=== PATIENT | female | born 1940 | race Caucasian/White ===

== ENCOUNTER 2016-08-07 19:17 | Observation (INO) | payer MEDICARE, BC ==
[2016-08-07] MEDS ORDERED: ONDANSETRON 4 MG/2 ML VIAL IVP STA (19:48)
[2016-08-07] MEDS ORDERED: MORPHINE SULFATE 2 MG/ML SYRINGE IVP STA (19:48)
--- NOTE | 2016-08-07 19:53 | ED ---
Chest Pain HPI - General Chief Complaint: Chest Pain Stated Complaint: Chest Pain Time Seen by Provider: 08/07/16 19:34 Source: patient Mode of arrival: wheelchair Limitations: no limitations - History of Present Illness Initial Comments: She has the chest pain ongoing for 2 days he seen in the anterior central chest and today it got worse after 2 PM it travels down to her back and is worse with a deep breaths as well she said she feels like it's pneumonia acting up she said she been coughing up yellow green stuff and now it's quite a large amount of phlegm she brings up the she denies any fever she has chills. Review of system is negative otherwise - Related Data Home Medications Medication Instructions Recorded Confirmed Cholecalciferol [Vitamin D3] 1,000 unit PO DAILY 02/27/14 08/07/16 Indomethacin 25 mg PO Q8HR PRN 02/27/14 08/07/16 Levothyroxine Sodium [Synthroid] 25 mcg PO DAILY 02/27/14 08/07/16 Losartan [Cozaar] 50 mg PO DAILY 02/27/14 08/07/16 Pravastatin Sodium [Pravachol] 20 mg PO HS 02/27/14 08/07/16 amLODIPine [Norvasc] 5 mg PO DAILY 02/27/14 08/07/16 traMADol HCl [Ultram] 50 mg PO Q8HR PRN 02/27/14 08/07/16 Ferrous Sulfate [Iron (65 MG 325 mg PO DAILY 12/16/14 08/07/16 Elemental)] [place]-3 Fatty Acids/Fish Oil [Fish 1 cap PO DAILY 12/16/14 08/07/16 Oil 1,000 mg Softgel] Acetaminophen [Tylenol 8 Hour] 650 mg PO TID PRN 08/07/16 08/07/16 Allergies Allergy/AdvReac Type Severity Reaction Status Date / Time No Known Allergies Allergy Verified 08/07/16 19:55 Review of Systems ROS Statement: Those systems with pertinent positive or pertinent negative responses have been documented in the HPI. ROS Other: All systems not noted in ROS Statement are negative. EKG Findings - EKG Comments: EKG Findings:: EKG showed normal sinus rhythm with some sinus arrhythmia ventricular rate 72 NH interval is 204 QRS duration is 1 or 2 QT/QTc is 378/ 413. Review of this EKG does not show any ST elevation or ST depression Past Medical History Past Medical History: Chest Pain / Angina, Heart Failure, Hyperlipidemia, Hypertension, Thyroid Disorder Additional Past Medical History / Comment(s): anemic, arthritis History of Any Multi-Drug Resistant Organisms: None Reported Past Surgical History: No Surgical Hx Reported Additional Past Surgical History / Comment(s): cataracts Past Anesthesia/Blood Transfusion Reactions: No Reported Reaction Past Psychological History: No Psychological Hx Reported Smoking Status: Never smoker Past Alcohol Use History: None Reported Past Drug Use History: None Reported General Exam - General Exam Comments Initial Comments: General: The patient is awake and alert, in moderate distress but GCS is 15 Skin: Skin is warm and dry and no rashes or lesions are noted. Eye: Pupils are equal, round and reactive to light, extra-ocular movements are intact; there is normal conjunctiva bilaterally. Ears, nose, mouth and throat: There are moist mucous membranes and no oral lesions. Neck: The neck is supple, there is no tenderness or JVD. Cardiovascular: There is a regular rate and rhythm. No murmur, rub or gallop is appreciated. Respiratory: To auscultation bilateral, crease breath sounds at the bases Gastrointestinal: tender in epigastric area. Back: There is no tenderness to palpation in the midline. There is no obvious deformity. Musculoskeletal: Normal ROM, no tenderness, There is no pedal edema. There is no calf tenderness or swelling. No cords were appreciated. Neurological: CN II-XII intact, Cranial nerves III through XII are intact. There are no obvious motor or sensory deficits. Coordination appears grossly intact. Speech is normal. Psychiatric: Cooperative, appropriate mood & affect, normal judgment. Limitations: no limitations Course Vital Signs 08/07/16 19:20 Temperature 98.4 F Pulse Rate 94 Respiratory 20 Rate Blood Pressure 147/75 O2 Sat by Pulse 97 Oximetry Critical Care Time Total Critical Care Time: 45 Critical Care Time: She With the severe chest pain and numb and a significant pleuritic component to it no fever she required quite a bit of morphine then numb and aVF lab revealed troponin is negative EKG is unremarkable but the d-dimer was high as CT angiogram was done it's unremarkable. She still in pain considering the risk factors she be admitted to the cardiology consult she be heparinized in the ER and she will also see cardiology as well as GI doctor Disposition Clinical Impression: Chest pain, Pleuritic chest pain Disposition: ADMITTED IP TO THIS HOSP Condition: Good
[2016-08-07 20:00] LABS: Basophils # (A) 0.1 k/uL (0-0.2); Basophils % (A) 2 %; CH 37.8; CHCM 33.2; Eosinophils # (A) 0.3 k/uL (0-0.7); Eosinophils % (A) 5 %; HDW 2.43; HGB 13.4 gm/dL (11.4-16.0); Luc % (Auto) 2; Lymphocytes # (A) 1.2 k/uL (1.0-4.8); Lymphocytes % (A) 20 %; MCH 36.3 pg (25.0-35.0); MCHC 31.8 g/dL (31.0-37.0); MCV 114.3 fL (80.0-100.0); Macrocytosis Marked; Mean Platelet Volume 7.7; Monocytes # (A) 0.3 k/uL (0-1.0); Monocytes % (A) 6 %; Neutrophils # (A) 3.8 k/uL (1.3-7.7); Neutrophils % (A) 65 %; RBC 3.68 m/uL (3.80-5.40); RDW 15.4 % (11.5-15.5); WBC 5.9 k/uL (3.8-10.6)
[2016-08-07 20:12] LABS: ALT 31 U/L (9-52); AST 23 U/L (14-36); Alkaline Phosphatase 68 U/L (38-126); Anion Gap 10 mmol/L; Blood Urea Nitrogen 17 mg/dL (7-17); Calcium 9.5 mg/dL (8.4-10.2); Carbon Dioxide 26 mmol/L (22-30); Chloride 102 mmol/L (98-107); Glucose 123 mg/dL (74-99); Magnesium 1.6 mg/dL (1.6-2.3); Non-African American GFR(MDRD) >60 (>60 ml/min/1.73 sqM); Potassium 4.7 mmol/L (3.5-5.1); Sodium 138 mmol/L (137-145); Total Bilirubin 0.6 mg/dL (0.2-1.3); Total Protein 6.8 g/dL (6.3-8.2)
[2016-08-07 20:23] LABS: INR 1.1 (<1.1); Prothrombin Time 10.8 sec (9.0-12.0)
[2016-08-07 20:27] LABS: Partial Thromboplastin Time 21.8 sec (22.0-30.0)
[2016-08-07 20:32] LABS: Creatine Kinase MB 0.4 ng/mL (0.0-2.4); Troponin I 0.013 ng/mL (0.000-0.034)
--- NOTE | 2016-08-07 20:34 | XR ---
EXAMINATION TYPE: XR chest 2V DATE OF EXAM: 08/07/2016 8:03 PM COMPARISON: 11/01/2015 HISTORY: Chest pain TECHNIQUE: Frontal and lateral views of the chest are obtained. FINDINGS: There is a hiatal hernia. Lungs are clear. There is no heart failure. There are no hilar m asses. There is spurring in the thoracic spine. IMPRESSION: Moderate hiatal hernia. Cardiomegaly. No acute lung disease. No change. There are ankylo tic changes in the midthoracic spine.
[2016-08-07] MEDS ORDERED: RX INFO: IV CONTRAST WAS GIVEN 1 EACH MISC MISCELLANE PRN (20:41)
--- NOTE | 2016-08-07 22:09 | CT ---
EXAMINATION TYPE: CT angio chest DATE OF EXAM: 08/07/2016 9:42 PM COMPARISON: NONE HISTORY: Mid Chest pain CT DLP: 471.6 mGycm Automated exposure control for dose reduction was used. CONTRAST: CTA scan of the thorax is performed with IV Contrast, patient injected with 100 mL of Omnipaque 350, pulmonary embolism protocol. There are 3-D post processed images.. FINDINGS: There is mild reticular subpleural density in both lungs and more at the lung bases. There is subsegm ental atelectasis at the lung bases. There is no sign of a pulmonary mass. There is a large hiatal he rnia. There is normal contrast opacification of the pulmonary arteries. I see no filling defects. The re is no sign of aortic aneurysm or dissection. Heart size is normal. There is degenerative spurring in the thoracic spine. There are ankylosing changes in the thoracic spine. IMPRESSION: NO EVIDENCE OF PULMONARY EMBOLISM. MILD PULMONARY FIBROTIC CHANGES. LARGE HIATAL HERNIA. THERE ARE CH ANGES OF POSSIBLE ANKYLOSING SPONDYLITIS.
[2016-08-07] MEDS ORDERED: MORPHINE SULFATE 2 MG/ML SYRINGE IVP ONE (22:43)
[2016-08-07] MEDS ORDERED: NITROGLYCERIN SL TABS 0.4 MG TAB SUBLINGUAL PRN (23:20)
[2016-08-07] MEDS ORDERED: HEPARIN SODIUM,PORCINE 5,000 UNIT/ML 1 ML VIAL IV ONE (23:20)
[2016-08-07] MEDS ORDERED: ACETAMINOPHEN TAB 325 MG TAB PO PRN (23:26)
[2016-08-07] MEDS ORDERED: INDOMETHACIN 25 MG CAP PO PRN (23:26)
[2016-08-07] MEDS ORDERED: PANTOPRAZOLE 40 MG/10 ML VIAL IVP ONE (23:28)
[2016-08-07] MEDS ORDERED: HEPARIN SODIUM,PORCINE/D5W PMX 25,000 UNIT in DEXTROSE/WATER 1 500ML.BAG IV SCH (23:30)
[2016-08-07] MEDS: MORPHINE SULFATE 2 MG/ML SYRINGE IVP PRN (23:56)
[2016-08-07] MEDS ORDERED: traMADol 50 MG TAB PO STA (23:58)
[2016-08-07] MEDS ORDERED: ACETAMINOPHEN TAB 325 MG TAB PO STA (23:59)
[2016-08-08 00:57] VITALS: BMI 31.4
[2016-08-08 02:59] LABS: Creatine Kinase <20 U/L (30-135)
[2016-08-08 03:12] LABS: Creatine Kinase MB 0.3 ng/mL (0.0-2.4); Troponin I <0.012 ng/mL (0.000-0.034)
[2016-08-08] MEDS: MORPHINE SULFATE 2 MG/ML SYRINGE IVP PRN (04:23)
[2016-08-08] MEDS: LEVOTHYROXINE 25 MCG TAB PO SCH (05:33)
[2016-08-08 07:16] LABS: Cholesterol 178 mg/dL (<200); HDL Cholesterol 106 mg/dL (40-60); Triglycerides 64 mg/dL (<150)
[2016-08-08 07:42] LABS: Creatine Kinase <20 U/L (30-135)
[2016-08-08 07:54] LABS: Creatine Kinase MB 0.2 ng/mL (0.0-2.4); Troponin I <0.012 ng/mL (0.000-0.034)
--- NOTE | 2016-08-08 08:31 | P.CRDCN ---
History of Present Illness Consult date: 08/08/16 Chief complaint: Chest pain History of present illness: This is a pleasant 75-year-old female patient with a past medical history significant for hypertension and dyslipidemia who does not follows with any tight cooper presented to the emergency room complaining of chest discomfort. Over the last 3-4 days, she describes chest discomfort, in the mid of the chest , as a sharp kind of discomfort, worse with deep breath. With that, the patient underwent a CTA of the chest which showed no PE. The EKG showed sinus rhythm without any significant ST or T-wave abnormalities. 3 sets of cardiac enzymes came in to be unremarkable. The CTA of the chest showed no PE but it did show large hiatal hernia. The patient is not aware of any prior history of coronary artery disease or coronary artery revascularization. I am going to proceed with a stress test. I will continue following up with her. Past Medical History Past Medical History: Chest Pain / Angina, Heart Failure, GERD/Reflux, Hearing Disorder / Deafness, Hyperlipidemia, Hypertension, Osteoarthritis (OA), Rheumatoid Arthritis (RA), Thyroid Disorder Additional Past Medical History / Comment(s): anemic, arthritis, DDD History of Any Multi-Drug Resistant Organisms: None Reported Past Surgical History: No Surgical Hx Reported Additional Past Surgical History / Comment(s): cataracts, vericous veins stripping bilat. arthroscopic surgery bilat knees and ankles Past Anesthesia/Blood Transfusion Reactions: No Reported Reaction Past Psychological History: No Psychological Hx Reported Smoking Status: Never smoker Past Alcohol Use History: None Reported Past Drug Use History: None Reported - Past Family History Mother Family Medical History: Coronary Artery Disease (CAD) Father Family Medical History: Cancer Additional Family Medical History / Comment(s): Lung CA Medications and Allergies Home Medications Medication Instructions Recorded Confirmed Type Cholecalciferol [Vitamin D3] 1,000 unit PO DAILY 02/27/14 08/08/16 History Indomethacin 25 mg PO Q8HR PRN 02/27/14 08/08/16 History Levothyroxine Sodium [Synthroid] 25 mcg PO DAILY 02/27/14 08/08/16 History Losartan [Cozaar] 50 mg PO DAILY 02/27/14 08/08/16 History Pravastatin Sodium [Pravachol] 20 mg PO HS 02/27/14 08/08/16 History amLODIPine [Norvasc] 5 mg PO DAILY 02/27/14 08/08/16 History traMADol HCl [Ultram] 50 mg PO Q8HR PRN 02/27/14 08/08/16 History Ferrous Sulfate [Iron (65 MG 325 mg PO DAILY 12/16/14 08/08/16 History Elemental)] [place]-3 Fatty Acids/Fish Oil [Fish 1 cap PO DAILY 12/16/14 08/08/16 History Oil 1,000 mg Softgel] Acetaminophen [Tylenol 8 Hour] 650 mg PO TID PRN 08/07/16 08/08/16 History Oxybutynin Chloride [Ditropan] 5 mg PO BID 08/08/16 08/08/16 History Allergies Allergy/AdvReac Type Severity Reaction Status Date / Time No Known Allergies Allergy Verified 08/08/16 01:02 Physical Exam Vitals: Vital Signs Temp Pulse Pulse Resp BP Pulse Ox 08/08/16 07:53 98.9 F 73 18 140/73 98 08/08/16 04:00 98.2 F 95 16 163/78 95 08/08/16 01:49 98 08/08/16 00:00 98.6 F 74 18 154/73 98 08/07/16 23:40 98.6 F 86 20 154/73 98 Intake and Output 08/07/16 08/08/16 08/08/16 22:59 06:59 14:59 Intake Total 260 Balance 260 Intake: IV 210 0.9 NS @ 10ml/hr 70 Heparin Sodium,Porcine/ 140 D5w Pmx 25,000 unit In Dextrose/Water 1 500ml. bag @ 12 UNITS/KG/HR 19. 59 mls/hr IV .Q24H [facility] Rx #:[id number] Oral 50 Other: Voiding Method Toilet # Voids 2 Weight 91.5 kg - Constitutional General appearance: no acute distress - Respiratory Respiratory: bilateral: CTA - Cardiovascular Rhythm: regular Heart sounds: normal: S1, S2 Results 08/07/16 19:40 08/07/16 19:40 Cardiac Enzymes 08/08/16 08/08/16 Range/Units 02:29 06:42 CK-MB (CK-2) 0.3 0.2 (0.0-2.4) ng/mL Troponin I <0.012 <0.012 (0.000-0.034) ng/mL Coagulation 08/08/16 Range/Units 06:40 APTT 31.0 H (22.0-30.0) sec Lipids 08/08/16 Range/Units 06:42 Triglycerides 64 (<150) mg/dL Cholesterol 178 (<200) mg/dL HDL Cholesterol 106 H (40-60) mg/dL Current Medications Generic Name Dose Route Start Last Admin Trade Name Freq PRN Reason Stop Dose Admin Acetaminophen 650 mg 08/07/16 23:26 Tylenol Tab PO TID PRN Pain Amlodipine Besylate 5 mg 08/08/16 09:00 Norvasc PO DAILY [facility] Aspirin 325 mg 08/08/16 09:00 Aspirin PO DAILY [facility] Cholecalciferol 1,000 unit 08/08/16 09:00 Vitamin D3 PO DAILY [facility] Ferrous Sulfate 325 mg 08/08/16 09:00 Feosol PO DAILY [facility] Heparin Sodium/Dextrose 25,000 500 mls @ 19.59 mls/hr 08/07/16 23:30 00:02 unit/ IV Solution IV 12 units/kg/hr .Q24H [facility] 19.59 mls/hr Protocol Administration 12 UNITS/KG/HR Indomethacin 25 mg 08/07/16 23:26 Indocin PO Q8HR PRN Pain Levothyroxine Sodium 25 mcg 08/08/16 06:30 08/08/16 05:33 Synthroid PO 25 mcg 0630 [facility] Administration Losartan Potassium 50 mg 08/08/16 09:00 Cozaar PO DAILY [facility] Miscellaneous Information 1 each 08/07/16 20:41 08/07/16 23:58 Rx Info: Iv Contrast Was Given MISCELLANE 08/09/16 20:41 1 each DAILY PRN Administration Per Protocol Morphine Sulfate 2 mg 08/07/16 23:20 08/08/16 04:23 Morphine Sulfate (Inj) IVP 2 mg Q5M PRN Administration Chest Pain Nitroglycerin 0.4 mg 08/07/16 23:20 Nitrostat SUBLINGUAL Q5M PRN Chest Pain Pravastatin Sodium 20 mg 08/08/16 21:00 Pravachol PO HS [facility] Tramadol HCl 50 mg 08/07/16 23:26 Ultram PO Q8HR PRN Pain Intake and Output 08/07/16 08/08/16 08/08/16 22:59 06:59 14:59 Intake Total 260 Balance 260 Intake: IV 210 0.9 NS @ 10ml/hr 70 Heparin Sodium,Porcine/ 140 D5w Pmx 25,000 unit In Dextrose/Water 1 500ml. bag @ 12 UNITS/KG/HR 19. 59 mls/hr IV .Q24H [facility] Rx #:[id number] Oral 50 Other: Voiding Method Toilet # Voids 2 Weight 91.5 kg Assessment and Plan Plan: Assessment #1 chest discomfort #2 hypertension #3 dyslipidemia Plan #1 proceed with a stress test #2 follow-up with the patient #3 increase the dose of amlodipine for better blood pressure control
[2016-08-08] MEDS: traMADol 50 MG TAB PO PRN ×2 (08:33→17:56)
[2016-08-08] MEDS ORDERED: REGADENOSON 0.4 MG/5 ML SYRINGE IV ONE (08:52)
[2016-08-08] MEDS ORDERED: AMINOPHYLLINE 500 MG/20 ML VIAL IV PRN (08:52)
[2016-08-08] MEDS ORDERED: amLODIPine 5 MG TAB PO SCH (09:00)
[2016-08-08] MEDS ORDERED: NON-FORMULARY DRUG (Omega-3 Fatty Acids/Fish Oil [Fish Oil 1,000 Mg Softgel] 1 CAP) PO SCH (09:00)
[2016-08-08] MEDS ORDERED: PANTOPRAZOLE 40 MG/10 ML VIAL IVP SCH (09:45)
--- NOTE | 2016-08-08 10:43 | EST ---
DATE OF SERVICE: 08/08/2016 AGE: 75Y SEX: F HT: 67" WT: 201 lbs. Lexiscan Cardiolite Stress Test *Heart Rate Blood Pressure *Rest: 74 Rest: 150/80 * *Max. Achieved: 107 Maximum BP: 147/69 85% PMHR: 124 100% PMHR: 146 *METS: - INDICATIONS: Chest pain. MEDICATIONS: - Baseline EKG revealed a normal sinus rhythm without significant ST-T changes. With Lexiscan administration, she did not have any significant symptoms. Heart rates changed from 74 to 107 beats per minute and blood pressure changed from 150/80 to 147/69. EKG was unremarkable and patient was asymptomatic. By EKG criteria, this is an unremarkable Lexiscan stress test.
[2016-08-08] MEDS: FERROUS SULFATE 325 MG TAB PO SCH (11:03)
[2016-08-08] MEDS: CHOLECALCIFEROL 1,000 UNIT TAB PO SCH (11:03)
[2016-08-08] MEDS: LOSARTAN 50 MG TAB PO SCH (11:03)
[2016-08-08] MEDS: amLODIPine 5 MG TAB PO SCH ×2 (11:03→20:34)
[2016-08-08] MEDS: OXYBUTYNIN CHLORIDE 5 MG TAB PO SCH ×2 (11:03→20:34)
[2016-08-08] MEDS: ASPIRIN 325 MG TAB PO SCH (11:03)
--- NOTE | 2016-08-08 12:09 | NM ---
EXAMINATION TYPE: NM stress lexiscan cardiolite DATE OF EXAM: 08/08/2016 11:06 AM COMPARISON: NONE HISTORY: History of hypertension and hypercholesterolemia as well as angina presents with chest pain TECHNIQUE: After the intravenous administration of 10.8 mCi Tc 99m Sestamibi - Cardiolite resting SP ECT images acquired 45 minutes post injection. The patient received 0.4mg Lexiscan, 27 mCi Tc 99m Sestamibi - Stress images obtained 30 minutes post injection FINDINGS: Review of stress and rest SPECT images demonstrates no distinct perfusion abnormality. Some diminish ed uptake on stress and rest SPECT images involving apex could reflect old infarct versus diaphragmat ic attenuation artifact. Gated analysis shows normal wall motion with an estimated left ventricular e jection fraction of 64 %. IMPRESSION: No convincing scintigraphic evidence for reversible ischemia.
--- NOTE | 2016-08-08 12:54 | P.HPIM ---
History of Present Illness H&P Date: 08/08/16 Chief Complaint: Chest pain This is a 75-year-old female with a known past medical history of congestive heart failure, hyperlipidemia, hypertension and hypothyroidism. Patient presents to the emergency room with complaints of chest pain over the last 3-4 days. Patient reports chest pain mostly on the left side radiating to her back and up into the shoulder. Pain was worse with taking in deep breaths. She has been having some cough with a yellowish greenish phlegm with runny nose and sinus congestion. Patient reports some postnasal drip as well. Denies any fevers chills or sweats. Denies any nausea or vomiting. Denies any bowel movement changes or urinary symptoms. Her EKG had shown a normal sinus rhythm with an incomplete right bundle branch block troponins were negative 3 sets. She had a CTA of the chest which was negative for pulmonary embolism it did show a large hiatal hernia with mild pulmonary fibrotic changes and possible ankylosing spondylitis. Patient was seen evaluated by cardiology and had undergone stress test which was negative. And GI service was consulted for a large hiatal hernia. Patient reports not having any EGD done in the past. Colonoscopy was in the last couple years. Patient does also report that she had [place] food yesterday and symptoms continued to worsen after that and do seem to correlate with food at times. Review of Systems Please refer to HPI otherwise unremarkable Past Medical History Past Medical History: Chest Pain / Angina, Heart Failure, GERD/Reflux, Hearing Disorder / Deafness, Hyperlipidemia, Hypertension, Osteoarthritis (OA), Rheumatoid Arthritis (RA), Thyroid Disorder Additional Past Medical History / Comment(s): anemic, arthritis, DDD History of Any Multi-Drug Resistant Organisms: None Reported Past Surgical History: No Surgical Hx Reported Additional Past Surgical History / Comment(s): cataracts, vericous veins stripping bilat. arthroscopic surgery bilat knees and ankles Past Anesthesia/Blood Transfusion Reactions: No Reported Reaction Past Psychological History: No Psychological Hx Reported Smoking Status: Never smoker Past Alcohol Use History: None Reported Past Drug Use History: None Reported - Past Family History Mother Family Medical History: Coronary Artery Disease (CAD) Father Family Medical History: Cancer Additional Family Medical History / Comment(s): Lung CA Medications and Allergies Home Medications Medication Instructions Recorded Confirmed Type Cholecalciferol [Vitamin D3] 1,000 unit PO DAILY 02/27/14 08/08/16 History Indomethacin 25 mg PO Q8HR PRN 02/27/14 08/08/16 History Levothyroxine Sodium [Synthroid] 25 mcg PO DAILY 02/27/14 08/08/16 History Losartan [Cozaar] 50 mg PO DAILY 02/27/14 08/08/16 History Pravastatin Sodium [Pravachol] 20 mg PO HS 02/27/14 08/08/16 History amLODIPine [Norvasc] 5 mg PO DAILY 02/27/14 08/08/16 History traMADol HCl [Ultram] 50 mg PO Q8HR PRN 02/27/14 08/08/16 History Ferrous Sulfate [Iron (65 MG 325 mg PO DAILY 12/16/14 08/08/16 History Elemental)] [place]-3 Fatty Acids/Fish Oil [Fish 1 cap PO DAILY 12/16/14 08/08/16 History Oil 1,000 mg Softgel] Acetaminophen [Tylenol 8 Hour] 650 mg PO TID PRN 08/07/16 08/08/16 History Oxybutynin Chloride [Ditropan] 5 mg PO BID 08/08/16 08/08/16 History Allergies Allergy/AdvReac Type Severity Reaction Status Date / Time No Known Allergies Allergy Verified 08/08/16 01:02 Physical Exam Vitals: Vital Signs Temp Pulse Pulse Resp BP Pulse Ox 08/08/16 11:52 95 69 18 08/08/16 11:44 98 F 69 18 133/60 100 08/08/16 08:00 95 73 18 08/08/16 07:53 98.9 F 73 18 140/73 98 08/08/16 04:00 98.2 F 95 16 163/78 95 08/08/16 01:49 98 08/08/16 00:00 98.6 F 74 18 154/73 98 08/07/16 23:40 98.6 F 86 20 154/73 98 Intake and Output 08/07/16 08/08/16 08/08/16 22:59 06:59 14:59 Intake Total 260 Balance 260 Intake: IV 210 0.9 NS @ 10ml/hr 70 Heparin Sodium,Porcine/ 140 D5w Pmx 25,000 unit In Dextrose/Water 1 500ml. bag @ 12 UNITS/KG/HR 19. 59 mls/hr IV .Q24H [facility] Rx #:[id number] Oral 50 Other: Voiding Method Toilet Toilet # Voids 2 Weight 91.5 kg Head normocephalic Neck supple Lungs clear to auscultation bilaterally no wheezing or crackles Heart regular rate and rhythm S1-S2, no rub or gallop. Tenderness with palpation of the chest wall Abdomen is soft nontender nondistended positive bowel sounds no hepatosplenomegaly Extremities no edema Neuro alert and orientated to 3 Results CBC & Chem 7: 08/07/16 19:40 08/07/16 19:40 Labs: Abnormal Lab Results - Last 24 Hours (Table) 08/08/16 08/08/16 08/08/16 Range/Units 02:29 06:40 06:42 APTT 31.0 H (22.0-30.0) sec Total Creatine Kinase <20 L <20 L (30-135) U/L HDL Cholesterol (40-60) mg/dL 08/08/16 Range/Units 06:42 APTT (22.0-30.0) sec Total Creatine Kinase (30-135) U/L HDL Cholesterol 106 H (40-60) mg/dL Thrombosis Risk Factor Assmnt - Choose All That Apply Each Factor Represents 1 point: Obesity (BMI >25), Swollen legs (current) Each Risk Factor Represents 2 Points: Age 61-74 years Thrombosis Risk Factor Assessment Total Risk Factor Score: 4 Thrombosis Risk Factor Assessment Level: Moderate Risk Assessment and Plan Plan: 1. Chest pain: Troponins negative 3 sets EKG normal sinus rhythm with an incomplete right which Brach, chest x-ray shows no acute changes. Also CTA completed which was negative for pulmonary embolism did reveal evidence of a large hiatal hernia and mild pulmonary fibrotic changes with possible ankylosing spondylitis. Patient seen by cardiology and underwent stress test. Stress test was negative. CA ruled out. 2. Large hiatal hernia may be contributing to patient's symptoms GI service has been consulted. 3. Essential hypertension cardiology did increase the Norvasc to 5 mg twice a day for better blood pressure control 4. Hypothyroidism continue with her Synthroid 5. Iron deficiency anemia continue with her ferrous sulfate DVT prophylaxis subcu heparin GI prophylaxis Protonix Time with Patient: Greater than 30 (Greater than 50% of the total time spent in counseling and coordination of care.I performed an examination of the patient and discussed their management with the physician [employer] Manager. I have reviewed the Physician [employer] Manager's notes and agree with the documented findings and plan of care)
--- NOTE | 2016-08-08 14:24 | CONS ---
DATE OF CONSULTATION: 08/08/2016 REASON FOR CONSULTATION: Atypical chest pain/hiatal hernia. HISTORY OF PRESENT ILLNESS: The patient is a 75-year-old white female with history of hypertension and hyperlipidemia, was admitted to the hospital because of chest pain for the last 3 to 4 days duration. She describes the pain mostly in the mid-sternal area, more like a chest pressure, occasionally sharp that has been progressively getting worse for the last few days. She came to the emergency room and was admitted to observation and Cardiology has been consulted. She underwent a stress test this morning, which was unremarkable. In the meantime, she continues to remain symptomatic. She denies any heartburn, she denies any dysphagia, odynophagia. She never had these symptoms in the past. At the time of admission to the hospital, she did have a CTA done to rule out pulmonary embolism but it showed a large hiatal hernia and hence, we are consulted in regards to this issue. The patient denies that her symptoms are worse with eating. Her past medical history is significant for hypertension, hyperlipidemia, and occasional GERD symptoms. She has history of degenerative joint disease, rheumatoid arthritis. PAST SURGICAL HISTORY: Bilateral cataract surgery, varicose vein stripping, bilateral knee arthroscopic surgery. Medications at home include vitamin D3, Indomethacin, Synthroid, Cozaar, Pravachol, Norvasc, Ultram, iron sulfate, Tylenol No. 3, Ditropan. ALLERGIES: None. SOCIAL HISTORY: No smoking. No alcohol use. FAMILY HISTORY: Unremarkable. REVIEW OF SYSTEMS: CARDIOPULMONARY: No chest pain, shortness of breath. GENITOURINARY: No dysuria or hematuria. MUSCULOSKELETAL: Unremarkable. SKIN: Unremarkable. ENDOCRINE: Unremarkable. PSYCHIATRIC: Unremarkable. NEUROLOGY: Unremarkable. ENT: Vision unremarkable. CONSTITUTIONAL: No recent weight loss, no fever, chills, or night seats. GI: As mentioned above. FAMILY HISTORY: Mother had coronary artery disease and father had lung cancer. On physical examination, she appears comfortable, in no apparent distress. Vital signs are stable. Blood pressure is 140/73, pulse is 73, temperature 98.9. HEENT EXAMINATION: Unremarkable. Conjunctivae are pink. Sclerae nonicteric. Oral cavity no lesions. NECK: No JVD or lymph node enlargement. Chest was clear to auscultation. HEART: Regular rate and rhythm. Abdomen is soft. Bowel sounds are positive. No organomegaly. EXTREMITIES: No pedal edema. SKIN: No rashes. NEURO: She is alert and oriented x3. No focal deficits. Labs done at the time of admission to the hospital: WBC 5.9, hemoglobin 13.4, platelets are normal. PT, INR is within normal limits. ALT, AST, T-bili, alk phos are all within normal limits. Troponins and CPKs were negative IMPRESSION: Atypical chest pain for the last 3 to 4 days' duration. Cardiology evaluated the patient, she had a stress test done this afternoon which was reported as negative. CTA showed evidence of large hiatal hernia. The symptoms are not very suggestive of reflux; however, because of the presence of large hiatal hernia, this possibility cannot be entirely excluded. RECOMMENDATIONS: 1. Start her on Protonix 40 mg b.i.d. 2. Start her on a regular diet. 3. If she continues to have persistent pain, will consider proceeding with an upper endoscopy during this hospitalization or on an outpatient basis. Plan was discussed with the patient. She was agreeable to it. Thank you for this consultation.
--- NOTE | 2016-08-08 18:04 | P.GSCN ---
History of Present Illness Consult date: 08/08/16 Reason for Consult: Chest pain History of present illness: Patient came to the hospital with complaints of pain in the retrosternal location. This seems to be more aggravated by various movements. Denies nausea vomiting, no significant reflux disease, no dysphagia. As part of her workup a CAT scan of the chest was performed which shows a large hiatal hernia. She has never had an upper endoscopy before. White blood cell count and liver enzymes fairly normal. Review of Systems The patient denies any acute changes in his vision or hearing, no dysphagia or odynophagia, no shortness of breath, no dysuria or hematuria, no headache, no runny nose, no rectal bleeding or melena, no unexplained weight loss Past Medical History Past Medical History: Chest Pain / Angina, Heart Failure, GERD/Reflux, Hearing Disorder / Deafness, Hyperlipidemia, Hypertension, Osteoarthritis (OA), Rheumatoid Arthritis (RA), Thyroid Disorder Additional Past Medical History / Comment(s): anemic, arthritis, DDD History of Any Multi-Drug Resistant Organisms: None Reported Past Surgical History: No Surgical Hx Reported Additional Past Surgical History / Comment(s): cataracts, vericous veins stripping bilat. arthroscopic surgery bilat knees and ankles Past Anesthesia/Blood Transfusion Reactions: No Reported Reaction Past Psychological History: No Psychological Hx Reported Smoking Status: Never smoker Past Alcohol Use History: None Reported Past Drug Use History: None Reported - Past Family History Mother Family Medical History: Coronary Artery Disease (CAD) Father Family Medical History: Cancer Additional Family Medical History / Comment(s): Lung CA Medications and Allergies Home Medications Medication Instructions Recorded Confirmed Type Cholecalciferol [Vitamin D3] 1,000 unit PO DAILY 02/27/14 08/08/16 History Indomethacin 25 mg PO Q8HR PRN 02/27/14 08/08/16 History Levothyroxine Sodium [Synthroid] 25 mcg PO DAILY 02/27/14 08/08/16 History Losartan [Cozaar] 50 mg PO DAILY 02/27/14 08/08/16 History Pravastatin Sodium [Pravachol] 20 mg PO HS 02/27/14 08/08/16 History amLODIPine [Norvasc] 5 mg PO DAILY 02/27/14 08/08/16 History traMADol HCl [Ultram] 50 mg PO Q8HR PRN 02/27/14 08/08/16 History Ferrous Sulfate [Iron (65 MG 325 mg PO DAILY 12/16/14 08/08/16 History Elemental)] [place]-3 Fatty Acids/Fish Oil [Fish 1 cap PO DAILY 12/16/14 08/08/16 History Oil 1,000 mg Softgel] Acetaminophen [Tylenol 8 Hour] 650 mg PO TID PRN 08/07/16 08/08/16 History Oxybutynin Chloride [Ditropan] 5 mg PO BID 08/08/16 08/08/16 History Allergies Allergy/AdvReac Type Severity Reaction Status Date / Time No Known Allergies Allergy Verified 08/08/16 01:02 Surgical - Exam Vital Signs Temp Pulse Resp BP Pulse Ox 98.4 F 94 20 147/75 97 08/07/16 19:20 08/07/16 19:20 08/07/16 19:20 08/07/16 19:20 08/07/16 19:20 Physical exam: General: Well-developed, well-nourished HEENT: Normocephalic, sclerae nonicteric Abdomen: Nontender, nondistended Extremities: No edema Neuro: Alert and oriented Results - Labs 08/07/16 19:40 08/07/16 19:40 Abnormal Lab Results - Last 24 Hours (Table) 08/08/16 08/08/16 08/08/16 Range/Units 02:29 06:40 06:42 APTT 31.0 H (22.0-30.0) sec Total Creatine Kinase <20 L <20 L (30-135) U/L HDL Cholesterol (40-60) mg/dL 08/08/16 Range/Units 06:42 APTT (22.0-30.0) sec Total Creatine Kinase (30-135) U/L HDL Cholesterol 106 H (40-60) mg/dL Diabetes panel 08/08/16 Range/Units 06:42 Triglycerides 64 (<150) mg/dL HDL Cholesterol 106 H (40-60) mg/dL Assessment and Plan (1) Chest pain Narrative/Plan: Patient's chest pain does seem atypical for hiatal hernia however at this time no other identifiable cause has been found. Agree with plans for upper endoscopy. We'll discuss with GI. Continue antiacids for now. Status: Acute
[2016-08-08] MEDS: HEPARIN SODIUM,PORCINE 5,000 UNIT/ML 1 ML VIAL SQ SCH (20:34)
[2016-08-08] MEDS: PANTOPRAZOLE 40 MG/10 ML VIAL IVP SCH (20:34)
[2016-08-08] MEDS: IBUPROFEN 600 MG TAB PO PRN (20:38)
[2016-08-08] MEDS ORDERED: PRAVASTATIN SODIUM 20 MG TAB PO SCH (21:00)
[2016-08-09] MEDS: traMADol 50 MG TAB PO PRN (04:15)
--- NOTE | 2016-08-09 09:09 | P.PN ---
Progress Note - Text This is a pleasant 75-year-old female patient with a past medical history significant for hypertension and dyslipidemia resented to the hospital complaining of atypical chest discomfort. She underwent a stress test which showed no ischemia. The patient is going to have an upper endoscopy later on today. From the cardiovascular standpoint of view, the patient can be discharged home.
[2016-08-09] MEDS: IBUPROFEN 600 MG TAB PO PRN (09:48)
[2016-08-09] MEDS ORDERED: LACTATED RINGERS 1,000 ML IV ONE (11:21)
[2016-08-09] MEDS ORDERED: PROPOFOL 10 MG/ML 20 ML VIAL IV ONE (11:21)
--- NOTE | 2016-08-09 12:18 | P.PCN ---
Date of Procedure: 08/09/16 Procedure(s) Performed: Procedure: Esophagogastroduodenoscopy and biopsy. Preoperative diagnosis: Atypical chest pain. Postoperative diagnosis: 1. Large hiatal hernia with both sliding and paraesophageal component. 2. LA grade B distal esophagitis with no definite strictures or Geller's esophagus. 3. Mild antral gastritis and duodenitis. 4. Multiple biopsies obtained from the duodenum, antrum and esophagus. Preparation and sedation: Were provided by anesthesia. Brief clinical history: The patient is a 75-year-old female who was admitted to the hospital because of chest pain. CT of the chest showed large hiatal hernia. She was evaluated by cardiology and her stress test was negative. A GI etiology of her chest pain was suggested. The details are summarized in the history and physical and dictated consultations and progress notes. Procedure: With the patient on her left lateral decubitus position and after informed consent and adequate sedation, I passed the Olympus-GIF 160 video upper endoscope through the cricopharyngeus down the esophagus. The esophagus showed distal linear erosions terminating at the level of the GE junction which was around 36 cm from the incisors. There was no definite stricture or any Geller's esophagus. The endoscope was then passed into the stomach. There was a large hiatal hernia with both paraesophageal and sliding components. Initially, I was not able to advance the endoscope to the antrum and pylorus because of the size of the hernia, however, with certain maneuvers and after deflating the stomach by suctioning the air out, the stomach location must have changed allowing the endoscope to be advanced to the antrum then I passed it through the pylorus into the duodenum. Both the antrum as well as the duodenum showed some erythema and friability but no large ulcers or obvious erosions. I obtained multiple biopsies from the duodenum, antrum and esophagus before the endoscope was withdrawn. The patient tolerated the procedure well. Plan: I summarized the findings to the patient and I told her that we will review her care with you and with Dr. Foy. Consideration can be given for surgical intervention at this time. An alternative approach would be close observation and intervention if she has recurrence of her symptoms or nutritional issues.
[2016-08-09 12:22] VITALS: RESP 16; TEMP 97.8
[2016-08-09] MEDS: LEVOTHYROXINE 25 MCG TAB PO SCH (13:07)
[2016-08-09] MEDS: FERROUS SULFATE 325 MG TAB PO SCH (13:07)
[2016-08-09] MEDS: CHOLECALCIFEROL 1,000 UNIT TAB PO SCH (13:07)
[2016-08-09] MEDS: ASPIRIN 325 MG TAB PO SCH (13:07)
[2016-08-09] MEDS: OXYBUTYNIN CHLORIDE 5 MG TAB PO SCH (13:07)
[2016-08-09] MEDS: LOSARTAN 50 MG TAB PO SCH (13:08)
[2016-08-09] MEDS: amLODIPine 5 MG TAB PO SCH (13:08)
[2016-08-09] MEDS: PANTOPRAZOLE 40 MG/10 ML VIAL IVP SCH (13:08)
[2016-08-09] MEDS: HEPARIN SODIUM,PORCINE 5,000 UNIT/ML 1 ML VIAL SQ SCH (13:08)
--- NOTE | 2016-08-09 13:15 | P.PN ---
Subjective Principal diagnosis: Chest pain Patient feels 90% better today. She believes is related to a dose of ibuprofen given last night. Today's endoscopy results reviewed. No obstruction or ischemia is noted. Objective - Vital Signs Vital signs: Vital Signs Temp 97.8 F 08/09/16 12:00 Pulse 80 08/09/16 12:00 Resp 16 08/09/16 12:00 BP 146/70 08/09/16 12:00 Pulse Ox 96 08/09/16 12:00 Intake & Output 08/08/16 08/09/16 08/09/16 18:59 06:59 18:59 Intake Total 200 468 200 Balance 200 468 200 Intake: IV 200 Oral 200 468 Other: Voiding Method Toilet Toilet Toilet # Voids 1 1 - Exam Abdomen: Soft, nontender, nondistended - Labs CBC & Chem 7: 08/07/16 19:40 08/07/16 19:40 Assessment and Plan (1) Chest pain Narrative/Plan: Patient's pain is improved today. I still suspect this was musculoskeletal in origin. Agree with plans for antiacid therapy given the endoscopic findings. The patient and I briefly discussed the role of surgical intervention for a hernia such as hers. We'll continue to follow this patient in the outpatient setting and discuss this further with her at this time however if her symptoms remain minimal would advise observation. Status: Acute
--- NOTE | 2016-08-09 13:42 | P.DS ---
Providers Date of admission: 08/07/16 23:20 Expected date of discharge: 08/09/16 Attending physician: Red Mcgowan Consults: 08/08/16 14:00 Consult Physician Routine Consulting Provider: Giovanni Painting Reason/Comments: large hiatal hernia Do you want consulting provider notified?: Yes Primary care physician: [facility] Course: Diagnoses on discharge #1 episode of chest pain no evidence of myocardial infarction, stress test and unremarkable #2 large hiatal hernia. Patient was evaluated by Dr. Foy for possible Zarina fundoplication #3 gastritis and duodenitis patient underwent EGD was Dr. Chester biopsies were done Hospital course patient is a 75-year-old female who was admitted to [facility] due to episode of chest pain he was admitted to medical floor with telemetry cardiac enzymes and EKGs was negative there was no evidence of acute myocardial infarction she was evaluated by cardiology she underwent stress test which was negative. Patient had evidence of a large hiatal hernia she was seen by Dr. Chester and underwent EGD with biopsies she had evidence of gastritis and duodenitis she was started on Protonix. She was also evaluated by Dr. Painting for possible Zarina fundoplication she will follow be followed by him as outpatient for further evaluation. Patient was stable she was discharged home on 08/09/2016 she will be followed in our office in one week Patient Condition at Discharge: Good Plan - Discharge Summary Discharge Medication List Cholecalciferol [Vitamin D3] 1,000 unit PO DAILY 02/27/14 [History] Levothyroxine Sodium [Synthroid] 25 mcg PO DAILY 02/27/14 [History] Losartan [Cozaar] 50 mg PO DAILY 02/27/14 [History] Pravastatin Sodium [Pravachol] 20 mg PO HS 02/27/14 [History] amLODIPine [Norvasc] 5 mg PO DAILY 02/27/14 [History] traMADol HCl [Ultram] 50 mg PO Q8HR PRN 02/27/14 [History] Ferrous Sulfate [Iron (65 MG Elemental)] 325 mg PO DAILY 12/16/14 [History] [place]-3 Fatty Acids/Fish Oil [Fish Oil 1,000 mg Softgel] 1 cap PO DAILY [History] Acetaminophen [Tylenol 8 Hour] 650 mg PO TID PRN 08/07/16 [History] Oxybutynin Chloride [Ditropan] 5 mg PO BID 08/08/16 [History] Follow up Appointment(s)/Referral(s): Giovanni Painting MD [Medical Doctor] - 2 Weeks Red Mcgowan MD [Primary Care Provider] - 1-2 days
[2016-08-09 13:58] VITALS: BP 143/67; PULSE 65
== END 2016-08-09 14:38 | disposition home or self-care (01) ==
LOC: EC 19:17 → 3OBS 23:20
PROVIDERS: ADMIT Internal Medicine; ATTEND Internal Medicine
DX: R07.89 Other chest pain (principal); K44.9 Diaphragmatic hernia without obstruction or gangrene; K21.0 Gastro-esophageal reflux disease with esophagitis; K29.80 Duodenitis without bleeding; K29.50 Unspecified chronic gastritis without bleeding; I10 Essential (primary) hypertension; E03.9 Hypothyroidism, unspecified; D50.9 Iron deficiency anemia, unspecified; I50.9 Heart failure, unspecified; E78.5 Hyperlipidemia, unspecified; H91.90 Unspecified hearing loss, unspecified ear; M06.9 Rheumatoid arthritis, unspecified; E66.9 Obesity, unspecified; Z68.31 Body mass index [BMI] 31.0-31.9, adult; M19.90 Unspecified osteoarthritis, unspecified site; Z79.899 Other long term (current) drug therapy; Z82.49 Family history of ischemic heart disease and other diseases of the circulatory system; Z80.1 Family history of malignant neoplasm of trachea, bronchus and lung
CPT/HCPCS: 99291; 96365; 96375 ×4; 96376 ×2; 36415; 93005; 93017; 85379; 88305; 80061; 80053; 82550 ×2; 82553 ×2; 83735; 84484 ×2; 85025; 85610; 85730 ×2; 88342; 71020; 71275; 78452; 43239; G0378 ×3; A9500; J1644 ×4; Q9967; J2405; J2270 ×2; J2785; J2704; C9113 ×3; 96366; 99153

== ENCOUNTER → 2018-07-27 | Outpatient (CLI) | payer MEDICARE, BC ==
--- NOTE | 2018-07-30 07:53 | BD ---
EXAMINATION TYPE: Axial Bone Density DATE OF EXAM: 07/27/2018 COMPARISON: NONE CLINICAL HISTORY: Height: 64.7 IN Weight: 212 LBS RISK FACTORS HISTORY OF: Active: VERY LIMITED Diet low in dairy products/other sources of calcium: YES Postmenopausal woman: AGE 51 Lost more than 2 inches in height since high school: YES 5" MEDICATIONS: Thyroid Medications: YES Which medication: Synthroid How Lon YEARS Additional Medications: ULTRAM, TYLENOL 3, SYNTHROID, CHOLESTEROL, MEDS, BLOOD PRESSURE MEDS, FISH OI L, MAGNESIUM, GLUCOSAMINE CHONDROITIN, EXAM MEASUREMENTS: Bone mineral densitometry was performed using the [employer]oc[employer] System. Bone mineral density as measured about the Lumbar spine is: ----- L1-L4(G/cm2): 1.761 T Score Values are as follows: ----- L2: 4.9 ----- L3: 6.1 ----- L4: 4.9 ----- L1-L4: 4.8 Bone mineral density BASELINE Bone mineral density about the R hip (g/cm2): 0.743 Bone mineral density about the L hip (g/cm2): 0.772 T Score values are as follows: -----R Neck: -2.1 -----L Neck: -1.9 -----R Total: -2.0 -----L Total: -2.0 Bone mineral density BASELINE IMPRESSION: Osteopenia (T Score between -2.5 and -1) overall in both hips. There is slightly increased risk of fracture and the patient may be considered for treatment. Re-Screen 2-5 years. NOTE: T-SCORE=SD OF THE YOUNG ADULT MEAN.
--- NOTE | 2018-08-02 12:42 | MM ---
Reason for exam: screening (asymptomatic). Last mammogram was performed 3 years and 3 months ago. History: Patient is postmenopausal. MG 3D Screening Mammo W/Cad Bilateral CC and MLO view(s) were taken. XCCL view(s) were taken of the right breast. Prior study comparison: April 22, 2015, bilateral MG screening mammo w CAD. March 11, 2014, right breast MG work up mamm w CAD RT. The breast tissue is heterogeneously dense. This may lower the sensitivity of mammography. There is a 6-7 mm round circumscribed margin density in the left breast upper outer anterior middle position. These findings are new when compared to the 2015 study. There are benign-appearing round vascular bilateral breast calcification. ASSESSMENT: Incomplete: need additional imaging evaluation, BI-RAD 0 RECOMMENDATION: Ultrasound of the left breast.
== END | disposition home or self-care (01) ==
LOC: RADMAMWWP 12:46
PROVIDERS: ATTEND Internal Medicine
DX: Z12.31 Encounter for screening mammogram for malignant neoplasm of breast (principal); M85.88 Other specified disorders of bone density and structure, other site; N95.1 Menopausal and female climacteric states
CPT/HCPCS: 77063; 77067; 77080

== ENCOUNTER → 2018-10-04 | Outpatient (CLI) | payer MEDICARE, BC ==
--- NOTE | 2018-10-04 12:00 | USB ---
Reason for exam: additional evaluation requested from abnormal screening. History: Patient is postmenopausal. Physical Findings: Nurse did not find any significant physical abnormalities on exam. US Breast Workup Limited LT Left limited breast ultrasound including focal area of concern, retroareolar and axilla demonstrates a 8 x 5 x 6mm irregular, lobular, solid, hypoechoic lesion at 12 o'clock, a 10 x 7 x 11mm irregular, lobular, solid, hypoechoic, vascular lesion at 1 o'clock, a 5mm and 3mm oval lymph node at the axilla tail. These results were verbally communicated with the patient and result sheet given to the patient on 10/04/18. ASSESSMENT: Suspicious, BI-RAD 4 RECOMMENDATION: Ultrasound core biopsy of the left breast. (2 sites, 12 and 1 o'clock) Called Dr. Mcgowan with mammographic findings. Appointment scheduled for 10/04/18 at 1:45. PRELIMINARY REPORT CALLED AND FAXED TO DR. MCGOWAN ON 10/04/18.
== END ==
LOC: RADUSWWP 09:59
PROVIDERS: ATTEND Internal Medicine
DX: R92.8 Other abnormal and inconclusive findings on diagnostic imaging of breast (principal)

== ENCOUNTER → 2018-10-22 | Day surgery (SDC) | payer MEDICARE, BC ==
[2018-10-22 13:28] VITALS: PULSE 67; RESP 16; TEMP 97.7; BMI 77.0
--- NOTE | 2018-10-22 15:14 | USB ---
EXAMINATION TYPE: US biopsy breast VAD LT, US biopsy breast add'l VAD LT, MG diagnostic mammo LT wo CAD DATE OF EXAM: 10/22/2018 CLINICAL HISTORY: R92.8 ABN MAMMO. Abnormal ultrasound. TECHNIQUE: Ultrasound guided core biopsy of right breast 2 sites with clip placement and follow-up diagnostic two-view mammogram.. COMPARISON: Prior ultrasound October 04, 2018 and older studies. FINDINGS: The procedure of ultrasound guided core biopsy was explained to the patient. Benefits, alternatives, and risks were discussed. An informed consent was then obtained. The patient was placed in supine positioning for imaging and for the procedure. Preprocedure ultrasound redemonstrates more regular 6 mm hypoechoic lesion 12:00 position left breast and slightly larger more superficial nearly 1 cm more isoechoic lesion 1:00 position left breast. The overlying skin was prepped and draped in usual sterile fashion. Lidocaine buffered with bicarbonate was used as anesthetic into the skin and subcutaneous tissue up to area of concern in the left breast. Under ultrasound guidance, a 12-gauge vacuum assisted biopsy gun device was used to obtain 3 core samples at both sites. Following this, a biopsy clip was left in lesion at both sites. The patient tolerated the procedure well without any immediate complication. The patient was kept in the radiology department for short stay after the procedure and then discharged home in stable condition. Postprocedure mammogram confirmed successful deployment of both clips with more anterior cranial outer clip corresponding to area of nodularity on original mammogram IMPRESSION: Successful, uncomplicated ultrasound guided core biopsy of two nearby areas of concern in the left breast, full pathology results to follow. Intermediate index of suspicion noted at time of procedure. Pathology Results: Malignant A. 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 See Surgical Pathology Cancer Case Summary and Comment. B. 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 See Surgical Pathology Cancer Case Summary and Comment. Recommendation Surgical consult of the left breast. THIEN
[2018-10-22 15:26] VITALS: BP 137/75
== END | disposition home or self-care (01) ==
LOC: RADUSWWP 12:35
PROVIDERS: ATTEND Internal Medicine
DX: C50.912 Malignant neoplasm of unspecified site of left female breast (principal); Z17.0 Estrogen receptor positive status [ER+]
CPT/HCPCS: 88305; 88342; 88341; 77065; 19083; 19084; A4648; J2001

== ENCOUNTER → 2018-11-02 | Outpatient (CLI) | payer MEDICARE, BC ==
[2018-11-02 15:33] VITALS: BP 153/72; PULSE 56; RESP 18; TEMP 96.9; BMI 36.0
--- NOTE | 2018-11-02 16:30 | P.GSHP ---
History of Present Illness H&P Date: 11/02/18 Chief Complaint: left breast cancer Pina is a 78-year-old white female who on a screening mammogram was noted to have an abnormality in her left breast. She had a bilateral mammogram in July 2018. This revealed a 6-7 mm round circumscribed density in the left upper outer anterior middle breast. This was new compared to mammograms in 2015. Recommendation was for ultrasound of the left breast. She subsequently had on a left breast ultrasound. This revealed an 8 mm lesion at 12:00 and a 10 mm lesion at 1:00. Ultrasound core biopsy of both of these lesions were performed and both were positive for invasive ductal carcinoma. The lesions were noted to be grade 2 at the 1 o'clock position and the lesion at the 12 o'clock position was Grade 1. The tumor cells were positive for estrogen and progesterone receptor and negative for HER-2/tony. This was filled both A and B. The patient denies any lumps or masses in her breast. She denies any pain in her breast. She does not complain of any recent trauma to her breast. She does not complain of any infection in her breast. She had never had a breast biopsy in the past. She states that she did get yearly mammograms. Her have become secondarily been about 3 years since her last mammogram. Family History: father: COPD daughter: thyroid cancer Hormonal History: menarche: 11 07/25 : (1 miscarrage), first full term at 26, breast fed: yes menopause: 49 BCP: none, IUD hormones: none Past surgical history: 1. Varicose veins 2. Arthroscopic surgery of both knees and ankles 3. Left neck lesion/benign Past medical History: 1. arthritis/ osteo and rheumatoid 2. poor eye site 3. hearing aids Social History: smoke: no alcohol: nightly wine, used to drink more in the past drugs: none - Constitutional Constitutional: Denies chills, Denies fever - EENT Comment: cataract surgery, bilateral inverted eye lids Eyes: bilateral blurred vision, denies pain Ears: bilateral: decreased hearing, deny: tinnitus Ears, nose, mouth and throat: Denies headache, Denies sore throat - Breasts Breasts: bilateral: as per HPI - Cardiovascular Cardiovascular: Denies chest pain, Denies shortness of breath - Respiratory Respiratory: Denies cough, Denies 7 - Gastrointestinal Gastrointestinal: Denies abdominal pain, Denies diarrhea, Denies nausea, Denies vomiting - Genitourinary (Female) Genitourinary: Denies dysuria, Denies hematuria - Menstruation Menstruation: Reports postmenopausal - Musculoskeletal Comment: arthritis, back pain saw pain management - Integumentary Integumentary: Denies pruritus, Denies rash - Neurological Neurological: Denies numbness, Denies weakness - Psychiatric Psychiatric: Denies anxiety, Denies depression - Endocrine Comment: gained 50 pounds in past several months Endocrine: Reports weight change, Denies fatigue - Hematologic/Lymphatic Comment: none - Allergic/Immunologic Allergic/Immunologic: Reports as per HPI Past Medical History Past Medical History: Chest Pain / Angina, Heart Failure, GERD/Reflux, Hearing Disorder / Deafness, Hyperlipidemia, Hypertension, Osteoarthritis (OA), Rheumatoid Arthritis (RA), Thyroid Disorder Additional Past Medical History / Comment(s): anemic, arthritis, DDD History of Any Multi-Drug Resistant Organisms: None Reported Past Surgical History: No Surgical Hx Reported Additional Past Surgical History / Comment(s): cataracts, vericous veins stripping bilat. arthroscopic surgery bilat knees and ankles Past Anesthesia/Blood Transfusion Reactions: No Reported Reaction Past Psychological History: No Psychological Hx Reported Smoking Status: Never smoker Past Alcohol Use History: None Reported Past Drug Use History: None Reported - Past Family History Mother Family Medical History: Coronary Artery Disease (CAD) Father Family Medical History: Cancer Additional Family Medical History / Comment(s): Lung CA Medications and Allergies Home Medications Medication Instructions Recorded Confirmed Type Cholecalciferol [Vitamin D3] 1,000 unit PO DAILY 02/27/14 11/02/18 History Levothyroxine Sodium [Synthroid] 50 mcg PO DAILY 02/27/14 11/02/18 History Pravastatin Sodium [Pravachol] 40 mg PO HS 02/27/14 11/02/18 History amLODIPine [Norvasc] 5 mg PO DAILY 02/27/14 11/02/18 History traMADol HCl [Ultram] 50 mg PO Q8HR PRN 02/27/14 11/02/18 History Acetaminophen [Tylenol 8 Hour] 650 mg PO TID PRN 08/07/16 11/02/18 History Oxybutynin Chloride 5 mg PO BID 10/22/18 11/02/18 History Allergies Allergy/AdvReac Type Severity Reaction Status Date / Time No Known Allergies Allergy Verified 11/02/18 15:28 Surgical - Exam Vital Signs Temp Pulse Resp BP Pulse Ox 96.9 F L 56 L 18 153/72 97 11/02/18 15:28 11/02/18 15:28 11/02/18 15:28 11/02/18 15:28 11/02/18 15:28 BMI 36 - General obese - Eyes normal ocular movement - ENT no hearing loss, no congestion - Neck trachea midline - Respiratory normal respiratory effort, clear to auscultation - Cardiovascular Rhythm: regular Heart Sounds: normal: S1, S2 - Abdomen Abdomen: soft, non tender, no guarding, no rigid, no rebound - Integumentary swollen ankles - Musculoskeletal uses a walker, difficulty with ambulation - Psychiatric oriented to time, oriented to person, oriented to place, speech is normal, memory intact breast exam: Right breast: Multi-positional exam no dominant masses or nodules of concern, fibrocystic changes Right axilla: No adenopathy of concern Left breast: Ecchymosis related to core biopsy, approximately 1-1/2 cm area of firmness is identified in the left periareolar region at approximately 2:00, fibrocystic changes, and left axilla: No adenopathy of concern Bra 38B, Ptosis grade 3 Results Mammogram and ultrasound results reviewed, radiograph reviewed with radiology Assessment and Plan Assessment: Impression: 1. Left breast invasive ductal carcinoma at 2 sites to one and 0 M0 ER/DE positive HER-2/tony negative grade 1/2 2. Family history of cancer 3. Severe arthritis osteo and rheumatoid 4. obesity 5. decreased hearing 6. decreased vision 7. HTN 8. high cholesterol I have discussed with the patient and her daughter and son-in-law options including lumpectomy and radiation, mastectomy plus or minus reconstruction. We have also discussed sentinel node biopsy possible axillary node dissection and the risk and benefits of all of these. After discussion the patient and her family have opted for a mastectomy with sentinel node biopsy possible axillary node dissection. Plan: 1. Left breast mastectomy, sentinel node biopsy possible axillary node dissection 2. Medical clearance from Dr. Mcgowan CC: Dr. Mcgowan
== END ==
LOC: WWCWWP 15:17
PROVIDERS: ATTEND Surgery
DX: Z53.9 Procedure and treatment not carried out, unspecified reason (principal)

== ENCOUNTER 2018-12-18 06:24 | Inpatient (IN) | payer MEDICARE, BC ==
[~2018-12-18 06:24] MED LIST: DEXAMETHASONE SOD PHOSPHATE 10 MG/ML 1 ML VIAL IV ONE; HEPARIN SODIUM,PORCINE 5,000 UNIT/ML 1 ML VIAL SQ ONE; HYDROmorphone 0.5 MG/0.5 ML SYRINGE IVP PRN; LIDOCAINE 1% 20 ML VIAL (10MG/ML) FOR IV START INTRADERMA PRN; ONDANSETRON 4 MG/2 ML VIAL IVP ONE; Pre Op ABX Message 1 EACH MISC MISCELLANE ONE; SCOPOLAMINE 1.5MG/72HR PATCH TRANSDERM ONE
[2018-12-18] MEDS: LACTATED RINGERS 1,000 ML IV SCH (07:23)
[2018-12-18] MEDS ORDERED: ALPRAZolam 0.25 MG TAB PO ONE (07:30)
--- NOTE | 2018-12-18 08:34 | NM ---
EXAMINATION TYPE: NM sentinel node injection DATE OF EXAM: 12/18/2018 COMPARISON: NONE HISTORY: Left-sided breast cancer. TECHNIQUE AND FINDINGS: The procedure of sentinel lymph node injection was explained to the patient. The benefits, alternatives, and risks were discussed. An informed consent was then obtained. Overlying skin is cleaned with sterile alcohol. Following this, 485 uCi [id number] Tilmanocept was inject ed in the upper outer aspect of the left nipple intradermally. The patient tolerated the procedure well without any immediate complication. The patient was kept in the radiology department for short stay after the procedure and then taken to surgery for surgical p rocedure what is presumed intraoperative gamma probe will be used for sentinel lymph node detection. IMPRESSION: Left breast radiotracer injection for sentinel node localization as above.
[2018-12-18] MEDS ORDERED: HEPARIN SODIUM,PORCINE 5,000 UNIT/ML 1 ML VIAL SQ ONE (09:28)
--- NOTE | 2018-12-18 09:33 | P.NAPBC ---
[facility] Queries - [facility] Queries Was patient's case review presented at [facility] tumor board? If no, comment.: Yes Was patient's pathology reviewed at [facility]? If no, comment.: Yes Was breast conservation surgery offered? If no, comment.: Yes Was sentinel node biopsy offered? If no, comment.: Yes Was diagnosis confirmed by percutaneous core biopsy? If no, comment.: Yes Is patient mastectomy patient?: Yes Was a preop referral to reconstructive surgeon offered?: Yes [facility] Comments: Patient and family opted for mastectomy. Clinical Stage: Stage 1A
[2018-12-18] MEDS ORDERED: SODIUM CHLORIDE 0.9% 100 ML with ceFAZolin 2,000 MG IV ONE ×2 (09:34)
--- NOTE | 2018-12-18 11:53 | P.OP ---
Date of Procedure: 12/18/18 Preoperative Diagnosis: Left breast cancer Postoperative Diagnosis: Same Procedure(s) Performed: Left breast mastectomy, sentinel node biopsy Anesthesia: ANDI Surgeon: Jyoti Abdul Estimated Blood Loss (ml): 50 IV fluids (ml): 600 Pathology: other (breast tissue and sentinel node) Condition: stable Disposition: PACU Indications for Procedure: Left breast cancer Description of Procedure: Patient is a 78-year-old white female with a diagnosis of areas of malignancy in the left breast. She was seen preoperatively and options of surgical treatment were discussed with the patient and her family. The patient has some mobility difficulty and she opted for mastectomy. She is not interested in reconstruction although this was offered. Patient was taken to the operating room and following induction of anesthesia the left breast and axilla were prepped and draped in a sterile fashion. A marking pen was utilized to raghavendra superior and inferior skin incisions. Incisions were carried down to the subcutaneous tissue and superior and inferior skin flaps were developed. These were developed using the electrocautery device. After the flaps had been developed assured that hemostasis was attained, the breast was dissected from medial to lateral being careful to maintain hemostasis using the electrocautery device as well as the Harmonic scalpel. This was carefully dissected from the pectoralis major muscle. The dissection was carried down to the area of the axilla. At the axilla the neoprobe was used to identify a radioactive area. This area was grasped using an Allis clamp and the radioactive/sentinel lymph node was identified. This was resected, being careful to maintain hemostasis using electrocautery device. After the breast had been resected it was marked for orientation using sutures. A short sutures on the superior surface, and a long sutures on the lateral surface. The 10 second count on this lymph node was approximately 1400. A second area of radioactivity was identified and this lymph node was retrieved as well.. This 10 second count was approximately 2000. The 10 second background count was noted to be 22. No adenopathy of concern was palpated. The lymph nodes did not feel suspicious and therefore no frozen section was obtained. Following this the wound was well irrigated. Several areas of vessels were identified these were ligated. Surgicel and pyriform was spent the wound and in the axilla. 2 Bryan-Bernard drains were placed. These were secured in place using a nylon suture. The deep tissues were closed with a 3-0 Vicryl suture. The skin was closed with 4-0 Monocryl. Steri-Strips were applied. A compression wrap was placed. All instrument and sponge counts were correct at the end of the case. The patient tolerated the procedure in stable condition.
[2018-12-18] MEDS ORDERED: ONDANSETRON 4 MG/2 ML VIAL IVP PRN (11:54)
[2018-12-18] MEDS ORDERED: HYDROmorphone 1 MG/ML 1 ML SYRINGE IV PRN (11:54)
[2018-12-18] MEDS ORDERED: NALOXONE 0.4 MG/ML 1 ML VIAL IV PRN (11:54)
[2018-12-18] MEDS ORDERED: diphenhydrAMINE 50 MG/ML 1 ML VIAL IVP ONE (12:19)
[2018-12-18 13:34] VITALS: BMI 36.6
[2018-12-18 13:53] LABS: ALT 22 U/L (9-52); AST 21 U/L (14-36); African American GFR (CKD) >90 (>60 ml/min/1.73 sqM); Alkaline Phosphatase 73 U/L (38-126); Anion Gap 9 mmol/L; Blood Urea Nitrogen 16 mg/dL (7-17); Calcium 9.7 mg/dL (8.4-10.2); Carbon Dioxide 22 mmol/L (22-30); Chloride 109 mmol/L (98-107); Glucose 127 mg/dL (74-99); Potassium 4.6 mmol/L (3.5-5.1); Sodium 140 mmol/L (137-145); Total Bilirubin 0.6 mg/dL (0.2-1.3); Total Protein 7.1 g/dL (6.3-8.2)
[2018-12-18 13:58] LABS: Basophils % (A) 1 %; Eosinophils # (A) 0.1 k/uL (0-0.7); Eosinophils % (A) 1 %; HCT 39.6 % (34.0-46.0); HGB 12.7 gm/dL (11.4-16.0); Lymphocytes # (A) 0.8 k/uL (1.0-4.8); Lymphocytes % (A) 15 %; MCH 30.7 pg (25.0-35.0); MCV 95.8 fL (80.0-100.0); Mean Platelet Volume 7.3; Monocytes # (A) 0.1 k/uL (0-1.0); Monocytes % (A) 2 %; Neutrophils # (A) 4.2 k/uL (1.3-7.7); Neutrophils % (A) 81 %; Platelet Count 211 k/uL (150-450); RBC 4.13 m/uL (3.80-5.40); RDW 14.7 % (11.5-15.5); WBC 5.2 k/uL (3.8-10.6)
--- NOTE | 2018-12-18 13:59 | P.CONS ---
History of Present Illness - Reason for Consult Consult date: 12/18/18 Medical management Requesting physician: Jyoti Abdul - History of Present Illness This is a 78-year-old female patient who is status post left breast mastectomy exact amount biopsy with Dr. Antonio Patel. Estimated blood loss 50. Patient was found to have invasive ductal carcinoma that was found from ultrasound core biopsy to left breast. Additional medical history includes chest pain, GERD, deafness, , hyperlipidemia, hypertension, osteoporosis, rheumatoid arthritis and thyroid disorder. Patient is currently resting in bed patient remains sleepy from anesthesia. Patient does wake up and follow commands but quickly falls back to sleep. Patient denies any chest pain or shortness breath. Patient denies nausea vomiting and diarrhea. Patient denies any urinary burning or frequency Review of Systems please refer to HPI otherwise unremarkable Past Medical History Past Medical History: Cancer, Chest Pain / Angina, GERD/Reflux, Hearing Disorder / Deafness, Hyperlipidemia, Hypertension, Osteoarthritis (OA), Rheumatoid Arthritis (RA), Thyroid Disorder Additional Past Medical History / Comment(s): OSTEOPOROSIS, BACK PAIN, USES ROLLING WALKER AND QUAD CANE., VARICOSE VEINS REMOVED, GANGLION CYST ON FINGER RIGHT HAND., URINE INCONTINENCE- WEARS BRIEFS., NEW DIAGNOSIS OF LEFT BREAST CANCER., HEARING AIDS . History of Any Multi-Drug Resistant Organisms: None Reported Past Surgical History: Orthopedic Surgery Additional Past Surgical History / Comment(s): cataracts, varicose veins . arthroscopic surgery bilat knees, ankle surgery., hx of pain clinic procedures. Past Anesthesia/Blood Transfusion Reactions: No Reported Reaction Past Psychological History: Depression Additional Psychological History / Comment(s): SOME DEPRESSION SINCE SPOUSE PASSED 1 YEAR AGO. Smoking Status: Never smoker Past Alcohol Use History: Rare Past Drug Use History: None Reported - Past Family History Mother Family Medical History: Coronary Artery Disease (CAD) Father Family Medical History: Cancer Additional Family Medical History / Comment(s): Lung CA Medications and Allergies Home Medications Medication Instructions Recorded Confirmed Type Cholecalciferol [Vitamin D3 (25 2,000 unit PO DAILY 02/27/14 12/18/18 History Mcg = 1000 Iu)] Levothyroxine Sodium [Synthroid] 50 mcg PO DAILY 02/27/14 12/13/18 History Pravastatin Sodium [Pravachol] 40 mg PO HS 02/27/14 12/18/18 History amLODIPine [Norvasc] 5 mg PO DAILY 02/27/14 12/13/18 History traMADol HCl [Ultram] 50 mg PO Q8HR PRN 02/27/14 12/18/18 History Oxybutynin Chloride 5 mg PO BID 10/22/18 12/18/18 History Acetaminophen-Codeine 300-30mg 1 tab PO BID PRN 12/13/18 12/18/18 History [Tylenol w/codeine #3] Garlic 1 each PO DAILY 12/13/18 12/13/18 History Losartan Potassium [Cozaar] 100 mg PO DAILY 12/13/18 12/13/18 History [place]-3 Fatty Acids/Fish Oil [Fish 1 each PO DAILY 12/13/18 12/13/18 History Oil 1,000 mg Softgel] Pantoprazole Sodium [Protonix] 40 mg PO DAILY 12/13/18 12/13/18 History Allergies Allergy/AdvReac Type Severity Reaction Status Date / Time No Known Allergies Allergy Verified 12/18/18 06:52 Physical Exam Vitals: Vital Signs Temp Pulse Resp BP Pulse Ox 12/18/18 12:47 84 16 147/67 97 12/18/18 12:32 82 16 142/65 97 12/18/18 12:15 81 16 147/66 100 12/18/18 12:03 98.4 F 73 18 153/74 100 12/18/18 06:45 97.6 F 60 18 129/63 97 Intake and Output 12/17/18 12/18/18 12/18/18 22:59 06:59 14:59 Intake Total 1000 Output Total 50 Balance 950 Intake: IV 1000 Output: Estimated Blood Loss 50 Head normocephalic Neck supple Lungs clear to auscultation bilaterally no wheezing or crackles Heart regular rate and rhythm S1-S2, no rub or gallop Abdomen is soft nontender nondistended positive bowel sounds no hepatosplenomegaly Extremities no edema Neuro alert and orientated to 3 Assessment and Plan Assessment: 1. Status post left breast mastectomy for invasive ductal carcinoma the left breast with Dr. Antonio Patel 2. History of GERD 3. History of hearing disorder 4. History of hyperlipidemia 5. History of essential hypertension 6. History of osteoarthritis 7. History of rheumatoid arthritis 8. History of hypothyroidism 9. History of depression DVT prophylaxis heparin. GI prophylaxis Protonix Thank you for this consultation we'll continue to follow patient closely throughout stay Time with Patient: Greater than 30 (Greater than 60% of the total time spent in counseling and coordination of care. I performed an examination of the patient and discussed their management with the Nurse Practitioner. I have reviewed the Nurse Practitioner's notes and agree with the documented findings and plan of care)
[2018-12-18] MEDS: DEXTROSE 5%-0.45% NACL 1,000 ML IV SCH ×2 (15:13→21:20)
[2018-12-18] MEDS: HEPARIN SODIUM,PORCINE 5,000 UNIT/ML 1 ML VIAL SQ SCH (16:15)
[2018-12-18] MEDS: OXYBUTYNIN CHLORIDE 5 MG TAB PO SCH (21:20)
[2018-12-19] MEDS: HEPARIN SODIUM,PORCINE 5,000 UNIT/ML 1 ML VIAL SQ SCH ×2 (02:39→09:47)
[2018-12-19] MEDS: LACTATED RINGERS 1,000 ML IV SCH (06:28)
[2018-12-19] MEDS: LEVOTHYROXINE 50 MCG TAB PO SCH (06:30)
--- NOTE | 2018-12-19 07:50 | P.PN ---
Subjective Progress Note Date: 12/19/18 Principal diagnosis: Left mastectomy/left breast cancer Pina is a 78-year-old white female status post left mastectomy and sentinel node biopsy, postop day #1. At this time she is doing well and not complaining of any pain. She does have bilateral lower extremity swelling and has not yet gotten out of bed. She has a history of bilateral lower extremity swelling. She is tolerating her diet without difficulty. Her CANDI output has been minimal and is serous in nature. Consult from medicine appreciated. CANDI output 55 mL last night serous in nature Objective - Vital Signs Vital signs: Vital Signs Temp 98.8 F 12/19/18 01:01 Pulse 97 12/19/18 01:01 Resp 15 12/19/18 01:01 BP 111/72 12/19/18 01:01 Pulse Ox 93 L 12/19/18 01:01 Intake & Output 12/18/18 12/19/18 12/19/18 18:59 06:59 18:59 Intake Total 1100 240 Output Total 50 55 Balance 1050 240 -55 Intake: IV 1100 Dextrose 5%-0.45% NaCl 1, 100 000 ml @ 100 mls/hr IV . Q10H RAHAT Rx#:[id number] Oral 240 Output: Drainage 55 Left Chest 10 Left chest 2 45 Estimated Blood Loss 50 Other: Voiding Method Bedpan # Voids 1 - Exam 34.9 - Constitutional General appearance: Present: obese - EENT Eyes: Present: EOMI ENT: Present: hard of hearing - Respiratory Respiratory: bilateral: CTA (Decreased breath sounds at the bases) - Cardiovascular Heart sounds: normal: S1, S2 - Integumentary Integumentary Comment(s): Incision clean and dry There is slight fluctuance underneath the flap and the drains were stripped, upon stripping them approximately 40 mL of serous fluid was obtained with decrease in the fluctuance, there is no evidence of any bleeding - Musculoskeletal Musculoskeletal Comment(s): Patient has difficulty with ambulation - Psychiatric Psychiatric: Present: A&O x's 3, appropriate affect, intact judgment & insight - Labs CBC & Chem 7: 12/18/18 13:13 12/18/18 13:13 Labs: Abnormal Lab Results - Last 24 Hours (Table) 12/18/18 12/18/18 Range/Units 13:13 13:13 Lymphocytes # 0.8 L (1.0-4.8) k/uL Chloride 109 H (98-107) mmol/L Glucose 127 H (74-99) mg/dL Assessment and Plan Assessment: Impression: 1. Status post left breast mastectomy 2 bilateral lower extremity swelling decreased 3 hearing disorder hard of hearing 4 hypertension 5 history of rheumatoid arthritis 6 history of depression 7 history of osteoarthritis 8 history of GERD 9 history of hyperlipidemia Plan: 1. Teach patient and family drain care 2. Continue close surveillance secondary to fluctuance under the mastectomy flap 3. Ambulation with assistance 4. Probable discharge home in a.m. 5. Keep binder on at all times
[2018-12-19] MEDS ORDERED: PROPOFOL 10 MG/ML 20 ML VIAL IV ONE (09:08)
[2018-12-19] MEDS ORDERED: LIDOCAINE 1% INJ 10MG/ML (20 ML MDV) ONE (09:08)
[2018-12-19] MEDS ORDERED: fentaNYL (PF) 50 MCG/ML 2 ML AMP ONE (09:08)
[2018-12-19] MEDS ORDERED: SUCCINYLCHOLINE CHLORIDE 100 MG/5 ML SYR IV ONE (09:08)
[2018-12-19] MEDS ORDERED: HYDROmorphone (PF) 1 MG/ML ONE (09:08)
[2018-12-19] MEDS: DEXTROSE 5%-0.45% NACL 1,000 ML IV SCH ×2 (09:32→17:15)
[2018-12-19] MEDS: amLODIPine 5 MG TAB PO SCH (09:48)
[2018-12-19] MEDS: LOSARTAN 50 MG TAB PO SCH (09:48)
[2018-12-19] MEDS: PANTOPRAZOLE 40 MG TABLET PO SCH (09:48)
[2018-12-19] MEDS: OXYBUTYNIN CHLORIDE 5 MG TAB PO SCH ×2 (09:48→19:59)
[2018-12-19 10:36] LABS: Basophils % (A) 1 %; Eosinophils % (A) 0 %; HCT 37.4 % (34.0-46.0); HGB 11.7 gm/dL (11.4-16.0); Lymphocytes # (A) 1.9 k/uL (1.0-4.8); Lymphocytes % (A) 29 %; MCH 30.5 pg (25.0-35.0); MCHC 31.3 g/dL (31.0-37.0); MCV 97.5 fL (80.0-100.0); Mean Platelet Volume 6.6; Monocytes # (A) 0.4 k/uL (0-1.0); Monocytes % (A) 6 %; Neutrophils # (A) 3.9 k/uL (1.3-7.7); Neutrophils % (A) 61 %; Platelet Count 233 k/uL (150-450); RBC 3.84 m/uL (3.80-5.40); RDW 14.2 % (11.5-15.5); WBC 6.3 k/uL (3.8-10.6)
[2018-12-19 10:56] LABS: Albumin 3.4 g/dL (3.5-5.0); Calcium 9.1 mg/dL (8.4-10.2); Potassium 3.8 mmol/L (3.5-5.1); Total Bilirubin 0.5 mg/dL (0.2-1.3); Total Protein 6.1 g/dL (6.3-8.2)
--- NOTE | 2018-12-19 12:31 | US ---
EXAMINATION TYPE: US venous doppler duplex LE DATE OF EXAM: 12/19/2018 12:27 PM COMPARISON: US CLINICAL HISTORY: r/o DVT. Bilateral Greater Saphenous Vein stripping per patient; bilateral leg swel ling and noted days before Left mastectomy 12/18/18 SIDE PERFORMED: Bilateral TECHNIQUE: The lower extremity deep venous system is examined utilizing real time linear array sonog larry with graded compression, doppler sonography and color-flow sonography. VESSELS IMAGED: Common Femoral Vein Deep Femoral Vein Greater Saphenous Vein * Femoral Vein Popliteal Vein Small Saphenous Vein * Proximal Calf Veins (* superficial vessels) Right Leg: Is positive for non occluding DVT in posterior of dual Femoral Vein with limited to no co mpression of this vein throughout its course. Possible dual Popliteal Vein, but is patent and mukund sible. Left Leg: Is positive for non occluding DVT in posterior of dual upper Femoral Vein. Not Full compre ssion is noted in one of 2 upper femoral veins. IMPRESSION: 1. Lower extremities dual venous systems. 2. There is thrombus within the right lower extremity femoral vein without compression through its co urse. 3. There is thrombus within the left lower extremity venous system with noncompression of 1 of the du al veins. 3. Findings are compatible with deep venous thrombosis bilateral lower extremities.
[2018-12-19] MEDS ORDERED: HEPARIN SODIUM,PORCINE 10,000 UNIT/ML 1 ML VIAL IV ONE (12:59)
[2018-12-19] MEDS ORDERED: HEPARIN SODIUM,PORCINE 5,000 UNIT/ML 1 ML VIAL IV PRN (12:59)
--- NOTE | 2018-12-19 13:54 | P.PN ---
Subjective Progress Note Date: 12/19/18 This is a 78-year-old female patient who is status post left breast mastectomy exact amount biopsy with Dr. Antonio Patel. Estimated blood loss 50. Patient was found to have invasive ductal carcinoma that was found from ultrasound core biopsy to left breast. Additional medical history includes chest pain, GERD, deafness, , hyperlipidemia, hypertension, osteoporosis, rheumatoid arthritis and thyroid disorder. Patient is currently resting in bed patient remains sleepy from anesthesia. Patient does wake up and follow commands but quickly falls back to sleep. Patient denies any chest pain or shortness breath. Patient denies nausea vomiting and diarrhea. Patient denies any urinary burning or radha quency On 12/19/2018 patient is alert and oriented 3. Patient having increased swelling to lower extremities. Venous Doppler will be ordered to rule out DVT. Patient denies any shortness of breath. Patient denies chest pain. Patient denies nausea vomiting or diarrhea. Patient denies any urinary burning or frequency Objective - Vital Signs Vital signs: Vital Signs Temp 98.3 F 12/19/18 07:00 Pulse 80 12/19/18 07:00 Resp 12 12/19/18 07:00 BP 135/77 12/19/18 07:00 Pulse Ox 94 L 12/19/18 07:00 Intake & Output 12/18/18 12/19/18 12/19/18 18:59 06:59 18:59 Intake Total 1100 240 Output Total 50 130 Balance 1050 240 -130 Intake: IV 1100 Dextrose 5%-0.45% NaCl 1, 100 000 ml @ 100 mls/hr IV . Q10H RAHAT Rx#:[id number] Oral 240 Output: Drainage 130 Left Chest 25 Left chest 2 105 Estimated Blood Loss 50 Other: Voiding Method Bedpan # Voids 1 3 - Exam Head normocephalic Neck supple Lungs clear to auscultation bilaterally no wheezing or crackles Heart regular rate and rhythm S1-S2, no rub or gallop Abdomen is soft nontender nondistended positive bowel sounds no he patosplenomegaly Extremities no edema Neuro alert and orientated to 3 - Labs CBC & Chem 7: 12/19/18 09:33 12/19/18 09:33 Labs: Abnormal Lab Results - Last 24 Hours (Table) 12/18/18 12/18/18 12/19/18 Range/Units 13:13 13:13 09:33 Lymphocytes # 0.8 L (1.0-4.8) k/uL Chloride 109 H 109 H (98-107) mmol/L Glucose 127 H 143 H (74-99) mg/dL Total Protein 6.1 L (6.3-8.2) g/dL Albumin 3.4 L (3.5-5.0) g/dL Assessment and Plan Assessment: 1. Status post left breast mastectomy for invasive ductal carcinoma the left breast with Dr. nAtonio Patel 2. History of GERD 3. History of hearing disorder 4. History of hyperlipidemia 5. History of essential hypertension 6. History of osteoarthritis 7. History of rheumatoid arthritis 8. History of hypothyroidism 9. History of depression 10. Bilateral lower extremity DVT. Venous Doppler completed showing positive for bilateral nonoccluding DVT. Patient started on IV heparin. Hematology services consulted DVT prophylaxis heparin. GI prophylaxis Protonix Thank you for this consultation we'll continue to follow patient closely throughout stay I performed an examination of the patient and discussed their management with the Nurse Practitioner. I have reviewed the Nurse Practitioner's notes and agree with the documented findings and plan of care
[2018-12-19 14:38] LABS: Basophils # (A) 0.1 k/uL (0-0.2); Basophils % (A) 1 %; Eosinophils # (A) 0.1 k/uL (0-0.7); Eosinophils % (A) 1 %; HCT 36.6 % (34.0-46.0); HGB 11.9 gm/dL (11.4-16.0); Lymphocytes # (A) 2.6 k/uL (1.0-4.8); Lymphocytes % (A) 35 %; MCH 30.8 pg (25.0-35.0); MCHC 32.5 g/dL (31.0-37.0); MCV 94.8 fL (80.0-100.0); Mean Platelet Volume 7.2; Monocytes # (A) 0.5 k/uL (0-1.0); Monocytes % (A) 7 %; Neutrophils # (A) 4.1 k/uL (1.3-7.7); Neutrophils % (A) 55 %; Platelet Count 220 k/uL (150-450); RBC 3.86 m/uL (3.80-5.40); RDW 14.8 % (11.5-15.5); WBC 7.4 k/uL (3.8-10.6)
[2018-12-19 14:43] LABS: INR 0.9 (<1.2); Partial Thromboplastin Time 22.6 sec (22.0-30.0); Prothrombin Time 10.1 sec (9.0-12.0)
[2018-12-19] MEDS: HEPARIN SOD,PORK IN 0.45% NACL 25,000 UNIT in 0.45% NACL 1 250ML.BAG IV SCH (15:11)
[2018-12-20] MEDS: DEXTROSE 5%-0.45% NACL 1,000 ML IV SCH ×3 (04:05→23:50)
[2018-12-20] MEDS: LACTATED RINGERS 1,000 ML IV SCH (04:06)
[2018-12-20] MEDS: LEVOTHYROXINE 50 MCG TAB PO SCH (05:48)
[2018-12-20] MEDS: HEPARIN SOD,PORK IN 0.45% NACL 25,000 UNIT in 0.45% NACL 1 250ML.BAG IV SCH (05:48)
[2018-12-20] MEDS: LOSARTAN 50 MG TAB PO SCH (06:58)
[2018-12-20] MEDS: amLODIPine 5 MG TAB PO SCH (06:58)
[2018-12-20] MEDS: OXYBUTYNIN CHLORIDE 5 MG TAB PO SCH ×2 (06:59→21:54)
[2018-12-20] MEDS: PANTOPRAZOLE 40 MG TABLET PO SCH (06:59)
[2018-12-20 07:42] LABS: Basophils % (A) 1 %; Eosinophils # (A) 0.1 k/uL (0-0.7); Eosinophils % (A) 2 %; HCT 35.5 % (34.0-46.0); HGB 11.3 gm/dL (11.4-16.0); Lymphocytes # (A) 3.2 k/uL (1.0-4.8); Lymphocytes % (A) 55 %; MCH 30.7 pg (25.0-35.0); MCHC 31.8 g/dL (31.0-37.0); MCV 96.6 fL (80.0-100.0); Mean Platelet Volume 7.2; Monocytes # (A) 0.4 k/uL (0-1.0); Monocytes % (A) 7 %; Neutrophils % (A) 34 %; Platelet Count 211 k/uL (150-450); RBC 3.68 m/uL (3.80-5.40); RDW 14.4 % (11.5-15.5); WBC 5.7 k/uL (3.8-10.6)
[2018-12-20 08:33] LABS: ALT 20 U/L (9-52); AST 15 U/L (14-36); African American GFR (CKD) >90 (>60 ml/min/1.73 sqM); Alkaline Phosphatase 51 U/L (38-126); Anion Gap 4 mmol/L; Blood Urea Nitrogen 14 mg/dL (7-17); Calcium 8.8 mg/dL (8.4-10.2); Carbon Dioxide 24 mmol/L (22-30); Chloride 113 mmol/L (98-107); Glucose 85 mg/dL (74-99); Sodium 141 mmol/L (137-145); Total Bilirubin 0.4 mg/dL (0.2-1.3); Total Protein 5.7 g/dL (6.3-8.2)
--- NOTE | 2018-12-20 10:47 | CDI ---
Documentation Clarification Form Date: 12/20/2018 10:07:56 AM From: Britt Pastor RN CCDS Admit Date: 12/19/2018 2:55:00 PM Patient Name: Pina Crum Visit Number: [id number] Discharge Date: ATTENTION: The Clinical Documentation Specialists (CDI) and [facility] Coding Staff appreciate your assistance in clarifying documentation. Please respond to the clarification below the line at the bottom and electronically sign. The CDI & [facility] Coding staff will review the response and follow-up if needed. Please note: Queries are made part of the Legal Health Record. If you have any questions, please contact the author of this message via ITS. Dr. Jyoti Patel The following has been documented in your progress notes Bilateral lower extremity DVT. History/Risk Factors: 78 year old [facility] Breast mastectomy secondary to invasive Ductal Carcinoma. Clinical Indicators: Per the Internal Medicine Consult 12/18/2018 "Extremities no edema" Per Your progress note 12/19/2018 She does have bilateral lower extremity swelling and has not gotten out of bed. She has a history of bilateral lower extremity swelling. Venous Doppler showing positive for bilateral non-occluding DVT Treatment: Heparin IV Definition of Present on Admission (POA): A diagnosis present at the time the order for admission to inpatient status was written. For each diagnosis, documentation must be clear to determine if the condition was present at the time of the patients inpatient admission or developed during the hospital stay. Please clarify if the Bilateral DVT was POA: ____Y = Yes, the condition was present at the time of the order for inpatient admission. ____N = No, the condition was not present at the time of the order for inpatient admission. X_W = Clinically undetermined if the condition was present at the time of the order for inpatient admission. (Last Revision: Jun 2018) The condition is clinically undertermined if it was present at the time of admission. She had a history of leg swelling in the past, which became more apparent during this admission. 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 Findings on the ultrasound when reviewed with radiology are reflective of at least a component of the process being chronic. _ MTDD
--- NOTE | 2018-12-20 11:34 | P.PN ---
Subjective Progress Note Date: 12/20/18 This is a 78-year-old female patient who is status post left breast mastectomy exact amount biopsy with Dr. Antonio Patel. Estimated blood loss 50. Patient was found to have invasive ductal carcinoma that was found from ultrasound core biopsy to left breast. Additional medical history includes chest pain, GERD, deafness, , hyperlipidemia, hypertension, osteoporosis, rheumatoid arthritis and thyroid disorder. Patient is currently resting in bed patient remains sleepy from anesthesia. Patient does wake up and follow commands but quickly falls back to sleep. Patient denies any chest pain or shortness breath. Patient denies nausea vomiting and diarrhea. Patient denies any urinary burning or freq uency On 12/19/2018 patient is alert and oriented 3. Patient having increased swelling to lower extremities. Venous Doppler will be ordered to rule out DVT. Patient denies any shortness of breath. Patient denies chest pain. Patient denies nausea vomiting or diarrhea. Patient denies any urinary burning or frequency 12/20/2018 patient had venous Doppler of the bilateral legs showing DVT in both lower extremities. She was started on IV heparin yesterday. Hematology has been through to evaluate patient. Hemoglobin is staying stable at 11.3. Per nurse no significant blood drainage from the incision site. Patient denies any chest pain or shortness of breath. Denies any nausea or vomiting. Reports having regular bowel movements prior to admission. Denies any burning with urination. Denies any pain at incision site. Her calfs are Tender. Patient Has Swelling Both in Both Legs. She Reports That There Has Been Slight Decrease in the Swelling since Yesterday. Legs Are Elevated. Objective - Vital Signs Vital signs: Vital Signs Temp 97.7 F 12/20/18 07:00 Pulse 70 12/20/18 07:00 Resp 17 12/20/18 07:00 BP 151/89 12/20/18 07:00 Pulse Ox 95 12/20/18 07:00 Intake & Output 12/19/18 12/20/18 12/20/18 18:59 06:59 18:59 Intake Total 250.000 239.94 Output Total 160 30 50 Balance -160 220.000 189.94 Intake: Intake, IV Titration 250.000 59.94 Amount Heparin Sod,Pork in 0.45% 250.000 59.94 NaCl 25,000 unit In 0.45 % NaCl 1 250ml.bag @ 18 UNITS/KG/HR 18.207 mls/hr IV .[id number] RAHAT Rx#: [id number] Oral 180 Output: Drainage 160 30 50 Left Chest 25 5 Left chest 2 135 30 45 Other: Voiding Method Bedpan # Voids 3 1 - Exam Head normocephalic Neck supple Lungs clear to auscultation bilaterally no wheezing or crackles Heart regular rate and rhythm S1-S2, no rub or gallop Abdomen is soft nontender nondistended positive bowel sounds no hepatosplenomegaly Extremities swelling noted in both legs. Tenderness with palpation of the cast. Patient does have JANIA hose on legs are elevated Neuro alert and orientated to 3 - Labs CBC & Chem 7: 12/20/18 05:34 12/20/18 05:34 Labs: Abnormal Lab Results - Last 24 Hours (Table) 12/19/18 12/20/18 12/20/18 Range/Units 20:55 05:34 05:34 RBC 3.68 L (3.80-5.40) m/uL Hgb 11.3 L (11.4-16.0) gm/dL APTT 77.8 H (22.0-30.0) sec Chloride 113 H (98-107) mmol/L Total Protein 5.7 L (6.3-8.2) g/dL Albumin 3.0 L (3.5-5.0) g/dL 12/20/18 Range/Units 05:34 RBC (3.80-5.40) m/uL Hgb (11.4-16.0) gm/dL APTT 108.9 H* (22.0-30.0) sec Chloride (98-107) mmol/L Total Protein (6.3-8.2) g/dL Albumin (3.5-5.0) g/dL Assessment and Plan Assessment: 1. Status post left breast mastectomy for left breast cancer with Dr. Antonio Patel 2. History of GERD 3. History of hearing disorder 4. History of hyperlipidemia 5. History of essential hypertension 6. History of osteoarthritis 7. History of rheumatoid arthritis 8. History of hypothyroidism 9. History of depression 10. Bilateral lower extremity DVT. Venous Doppler completed showing positive for bilateral nonoccluding DVT. Patient started on IV heparin. Hematology services consulted. accounts payable manager has noted that patient does not have prescription coverage. Therefore she will need to be started on Coumadin when it is time to start oral anticoagulation. It is okay to discontinue SCDs since patient is on IV heparin. 11. Moderate protein calorie malnutrition: Add ensure DVT prophylaxis IV heparin. GI prophylaxis Protonix I performed an examination of the patient and discussed their management with the physician Power Transformer Repairer. I have reviewed the Physician Power Transformer Repairer's notes and agree with the documented findings and plan of care
[2018-12-20] MEDS: HYDROcodone/APAP 5-325MG 1 EACH TAB PO PRN ×2 (12:06→21:54)
[2018-12-20] MEDS ORDERED: RIVAROXABAN 15 MG TAB PO SCH (17:30)
--- NOTE | 2018-12-20 17:35 | P.PN ---
Subjective Progress Note Date: 12/20/18 Principal diagnosis: Left mastectomy/left breast cancer Pina is a 78-year-old white female status post left mastectomy and sentinel node biopsy, postop day #2. At this time she is doing well and not complaining of any pain. In response to her bilateral lower extremity edema the patient underwent an ultrasound of the bilateral lower extremities. Findings were consistent with bilateral lower extremity not completely occlusive DVT. Radiographs were reviewed with radiology and it was felt that findings showed some components which were consistent with chronic DVT. This is consistent with the patient's history of bilateral lower extremity swelling over the past several months. However, it would be impossible to ascertain that there was not an acute component as well and therefore anticoagulation was initiated. The patient was initially started on heparin, however after discussion with Dr. aSntos from hematology she will be placed on Eliquis. He feels that approximately 3 months of treatment is adequate, and he feels that samples can be obtained secondary to the fact that the patient does not have prescription coverage. This was also discussed with DR. Mcgowan. The patient and her family understand and are in agreement. Objective - Vital Signs Vital signs: Vital Signs Temp 98.5 F 12/20/18 14:53 Pulse 87 12/20/18 16:00 Resp 15 12/20/18 14:53 BP 121/73 12/20/18 14:53 Pulse Ox 95 12/20/18 14:53 Intake & Output 12/19/18 12/20/18 12/20/18 18:59 06:59 18:59 Intake Total 250.000 446.28 Output Total 160 30 80 Balance -160 220.000 366.28 Intake: Intake, IV Titration 250.000 86.28 Amount Heparin Sod,Pork in 0.45% 250.000 86.28 NaCl 25,000 unit In 0.45 % NaCl 1 250ml.bag @ 18 UNITS/KG/HR 18.207 mls/hr IV .[id number] [facility] Rx#: [id number] Oral 360 Output: Drainage 160 30 80 Left Chest 25 5 Left chest 2 135 30 75 Other: Voiding Method Bedpan # Voids 3 1 3 # Bowel Movements 1 - Exam 34.9 - Constitutional General appearance: Present: cooperative - EENT Eyes: Present: EOMI ENT: Present: hard of hearing - Respiratory Respiratory: bilateral: CTA - Cardiovascular Rhythm: regular Heart sounds: normal: S1, S2 - Integumentary Integumentary Comment(s): Swollen bilateral ankles - Musculoskeletal Musculoskeletal Comment(s): poor ambulation - Psychiatric Psychiatric: Present: A&O x's 3, appropriate affect, intact judgment & insight - Additional findings Additional findings: Incision: Clean and dry CANDI output is serous, approximately 45 mL total - Labs CBC & Chem 7: 12/20/18 05:34 12/20/18 05:34 Labs: Abnormal Lab Results - Last 24 Hours (Table) 12/19/18 12/20/18 12/20/18 Range/Units 20:55 05:34 05:34 RBC 3.68 L (3.80-5.40) m/uL Hgb 11.3 L (11.4-16.0) gm/dL APTT 77.8 H (22.0-30.0) sec Chloride 113 H (98-107) mmol/L Total Protein 5.7 L (6.3-8.2) g/dL Albumin 3.0 L (3.5-5.0) g/dL 12/20/18 Range/Units 05:34 RBC (3.80-5.40) m/uL Hgb (11.4-16.0) gm/dL APTT 108.9 H* (22.0-30.0) sec Chloride (98-107) mmol/L Total Protein (6.3-8.2) g/dL Albumin (3.5-5.0) g/dL Assessment and Plan Assessment: Impression: 1. Status post left breast mastectomy 2 bilateral lower extremity swelling decreased 3 hearing disorder hard of hearing 4 hypertension 5 history of rheumatoid arthritis 6 history of depression 7 history of osteoarthritis 8 history of GERD 9 history of hyperlipidemia Plan: 1. Teach patient and family drain care 2. Bilateral lower extremity DVT, patient started on anticoagulation 3. Ambulation with assistance 4. Probable discharge home in a.m. 5. Keep binder on at all times 6. DC pneumatic compression stockings
[2018-12-20] MEDS ORDERED: WARFARIN 5 MG TAB PO ONE (18:00)
[2018-12-21] MEDS: LACTATED RINGERS 1,000 ML IV SCH (06:06)
[2018-12-21] MEDS ORDERED: RIVAROXABAN 15 MG TAB PO SCH (07:30)
[2018-12-21 07:41] VITALS: BP 132/81; PULSE 65; RESP 16; TEMP 98
[2018-12-21] MEDS: LEVOTHYROXINE 50 MCG TAB PO SCH (07:43)
[2018-12-21] MEDS: PANTOPRAZOLE 40 MG TABLET PO SCH (07:44)
[2018-12-21] MEDS: HYDROcodone/APAP 5-325MG 1 EACH TAB PO PRN (07:47)
[2018-12-21 08:22] LABS: ALT 13 U/L (9-52); AST 14 U/L (14-36); African American GFR (CKD) >90 (>60 ml/min/1.73 sqM); Albumin 3.1 g/dL (3.5-5.0); Alkaline Phosphatase 52 U/L (38-126); Anion Gap 5 mmol/L; Blood Urea Nitrogen 12 mg/dL (7-17); Calcium 9.3 mg/dL (8.4-10.2); Carbon Dioxide 24 mmol/L (22-30); Chloride 110 mmol/L (98-107); Glucose 88 mg/dL (74-99); Potassium 4.3 mmol/L (3.5-5.1); Sodium 139 mmol/L (137-145); Total Bilirubin 0.4 mg/dL (0.2-1.3); Total Protein 5.9 g/dL (6.3-8.2)
[2018-12-21 08:23] LABS: Basophils % (A) 1 %; Eosinophils # (A) 0.3 k/uL (0-0.7); Eosinophils % (A) 6 %; HCT 36.4 % (34.0-46.0); HGB 11.8 gm/dL (11.4-16.0); Lymphocytes # (A) 1.9 k/uL (1.0-4.8); Lymphocytes % (A) 42 %; MCH 30.9 pg (25.0-35.0); MCHC 32.5 g/dL (31.0-37.0); MCV 95.1 fL (80.0-100.0); Mean Platelet Volume 7.1; Monocytes # (A) 0.3 k/uL (0-1.0); Monocytes % (A) 7 %; Neutrophils # (A) 1.9 k/uL (1.3-7.7); Neutrophils % (A) 42 %; Platelet Count 208 k/uL (150-450); RBC 3.82 m/uL (3.80-5.40); RDW 14.6 % (11.5-15.5); WBC 4.6 k/uL (3.8-10.6)
--- NOTE | 2018-12-21 08:45 | P.CONS ---
History of Present Illness - Reason for Consult Consult date: 12/20/18 bilateral DVT Requesting physician: Milana Barcenas - Chief Complaint Breast cancer, sentinel lymph node dissection - History of Present Illness Pt admitted for SLND s/p left mastectomy for breast cancer. Pt diagnosed with BLE DVT. She has had swelling in the legs even prior to surgery, denies history of clotting disorders, she has had decreased activity the last few months due to arthritic pain, remote history of vein stripping in the 60's. Review of Systems 14 point ROS is negative except as stated in HPI Past Medical History Past Medical History: Cancer, Chest Pain / Angina, GERD/Reflux, Hearing Disorder / Deafness, Hyperlipidemia, Hypertension, Osteoarthritis (OA), Rheumatoid Arthritis (RA), Thyroid Disorder Additional Past Medical History / Comment(s): OSTEOPOROSIS, BACK PAIN, USES ROLLING WALKER AND QUAD CANE., VARICOSE VEINS REMOVED, GANGLION CYST ON FINGER RIGHT HAND., URINE INCONTINENCE- WEARS BRIEFS., NEW DIAGNOSIS OF LEFT BREAST CANCER., HEARING AIDS . History of Any Multi-Drug Resistant Organisms: None Reported Past Surgical History: Orthopedic Surgery Additional Past Surgical History / Comment(s): cataracts, varicose veins . arthroscopic surgery bilat knees, ankle surgery., hx of pain clinic procedures. Past Anesthesia/Blood Transfusion Reactions: No Reported Reaction Past Psychological History: Depression Additional Psychological History / Comment(s): SOME DEPRESSION SINCE SPOUSE PASSED 1 YEAR AGO. Smoking Status: Never smoker Past Alcohol Use History: Rare Past Drug Use History: None Reported - Past Family History Mother Family Medical History: Coronary Artery Disease (CAD) Father Family Medical History: Cancer Additional Family Medical History / Comment(s): Lung CA Medications and Allergies Home Medications Medication Instructions Recorded Confirmed Type Cholecalciferol [Vitamin D3 (25 2,000 unit PO DAILY 02/27/14 12/19/18 History Mcg = 1000 Iu)] Levothyroxine Sodium [Synthroid] 50 mcg PO DAILY 02/27/14 12/19/18 History Pravastatin Sodium [Pravachol] 40 mg PO HS 02/27/14 12/19/18 History amLODIPine [Norvasc] 5 mg PO DAILY 02/27/14 12/19/18 History traMADol HCl [Ultram] 50 mg PO Q8HR PRN 02/27/14 12/19/18 History Oxybutynin Chloride 5 mg PO BID 10/22/18 12/19/18 History Acetaminophen-Codeine 300-30mg 1 tab PO BID PRN 12/13/18 12/19/18 History [Tylenol w/codeine #3] Garlic 1 tab PO DAILY 12/13/18 12/19/18 History Losartan Potassium [Cozaar] 100 mg PO DAILY 12/13/18 12/19/18 History [place]-3 Fatty Acids/Fish Oil [Fish 1 cap PO DAILY 12/13/18 12/19/18 History Oil 1,000 mg Softgel] Pantoprazole Sodium [Protonix] 40 mg PO DAILY 12/13/18 12/19/18 History Allergies Allergy/AdvReac Type Severity Reaction Status Date / Time No Known Allergies Allergy Verified 12/19/18 18:46 Physical Exam Vitals: Vital Signs Temp Pulse Pulse Resp BP Pulse Ox 12/20/18 00:24 98.4 F 86 15 122/76 92 L 12/19/18 19:41 99.4 F 70 15 104/64 96 12/19/18 15:00 98 F 96 12 95/57 94 L Intake and Output 12/19/18 12/20/18 12/20/18 22:59 06:59 14:59 Intake Total 119.863 130.137 Output Total 30 30 Balance 89.863 100.137 Intake: Intake, IV Titration 119.863 130.137 Amount Heparin Sod,Pork in 0.45% 119.863 130.137 NaCl 25,000 unit In 0.45 % NaCl 1 250ml.bag @ 18 UNITS/KG/HR 18.207 mls/hr IV .[id number] [facility] Rx#: [id number] Output: Drainage 30 30 Left chest 2 30 30 Other: # Voids 2 1 - Constitutional General appearance: cooperative, no acute distress, obese - EENT Eyes: anicteric sclerae, EOMI, normal appearance ENT: hard of hearing, normal oropharynx - Neck Neck: no lymphadenopathy - Respiratory Respiratory: bilateral: CTA - Cardiovascular Rhythm: regular Heart sounds: normal: S1, S2 Abnormal Heart Sounds: no systolic murmur, no diastolic murmur, no rub, no S3 Gallop, no S4 Gallop, no click, no other leg Peripheral Edema: bilateral: 3+ - Gastrointestinal General gastrointestinal: no absent bowel sounds, no decreased bowel sounds, no distended, no hepatomegaly, no hyperactive bowel sounds, normal bowel sounds, no organomegaly, no rigid, no scaphoid, soft, no splenomegaly, no tenderness, no umbilical hernia, no ventral hernia - Neurologic Neurologic: CNII-XII intact - Musculoskeletal Musculoskeletal: generalized weakness, strength equal bilaterally - Psychiatric Psychiatric: A&O x's 3, appropriate affect, intact judgment & insight chest wall is wrapped in dressings and binder from recent on the left and ALND Results CBC & Chem 7: 12/21/18 07:22 12/21/18 07:22 Labs: Abnormal Lab Results - Last 24 Hours (Table) 12/19/18 12/19/18 12/20/18 Range/Units 09:33 20:55 05:34 RBC 3.68 L (3.80-5.40) m/uL Hgb 11.3 L (11.4-16.0) gm/dL APTT 77.8 H (22.0-30.0) sec Chloride 109 H (98-107) mmol/L Glucose 143 H (74-99) mg/dL Total Protein 6.1 L (6.3-8.2) g/dL Albumin 3.4 L (3.5-5.0) g/dL 12/20/18 Range/Units 05:34 RBC (3.80-5.40) m/uL Hgb (11.4-16.0) gm/dL APTT 108.9 H* (22.0-30.0) sec Chloride (98-107) mmol/L Glucose (74-99) mg/dL Total Protein (6.3-8.2) g/dL Albumin (3.5-5.0) g/dL Venous US: report reviewed Assessment and Plan (1) DVT, bilateral lower limbs Narrative/Plan: No Rx coverage. Starter pack for xarelto Rx will be given then samples through the office. Recommendation is for 6mo anticoagulation with repeat doppler prior to discontinuation, taking into consideration any persistent risk factors Dr. Santos and Dr. Abdul discussed case. Questioning if the blood clots were present prior as pt had symptoms before surgery. Provoking factors include cancer, decreased mobility and vascular congestion. Heparin drip was stopped. Xarelto started this evening. Current Visit: Yes Status: Acute Priority: High Code(s): I82.403 - ACUTE EMBOLISM AND THOMBOS UNSP DEEP VEINS OF LOW EXTRM, BI SNOMED Code(s): 608186058 (2) S/P left mastectomy Narrative/Plan: October 2018 abnormal mammogram, biopsy of 2 foci, pathology positive for invasive ductal carcinoma. Pt is now s/p lt breast mastectomy and SLND, final path pending. Pt will f/u with Medical Oncology Current Visit: Yes Status: Acute Priority: High Code(s): Z90.12 - ACQUIRED ABSENCE OF LEFT BREAST AND NIPPLE SNOMED Code(s): 401086478 Plan: Attests: I have seen and examined patient, performed H&P, developed impression and plan of care, discussed with dictator. Agree with note, documented as a scribe.
--- NOTE | 2018-12-21 08:53 | P.PN ---
Subjective Progress Note Date: 12/21/18 Principal diagnosis: Left mastectomy/left breast cancer Pina is a 78-year-old white female status post left mastectomy and sentinel node biopsy, postop day #3. At this time she is doing well and not complaining of any pain. In response to her bilateral lower extremity edema the patient underwent an ultrasound of the bilateral lower extremities. Findings were consistent with bilateral lower extremity not completely occlusive DVT. Radiographs were reviewed with radiology and it was felt that findings showed some components which were consistent with chronic DVT. This is consistent with the patient's history of bilateral lower extremity swelling over the past several months. However, it would be impossible to ascertain that there was not an acute component as well and therefore anticoagulation was initiated. The patient was initially started on heparin, however after discussion with Dr. Santos from hematology she will be placed on Eliquis. He feels that approximately 3 months of treatment is adequate, and he feels that samples can be obtained secondary to the fact that the patient does not have prescription coverage. This was also discussed with DR. Mcgowan. The patient and her family understand and are in agreement. The patient is doing well this morning without any complaints. She has decreased swelling in bilateral lower extremities. She is ambulating with assistance at this time. She has not had any evidence of bleeding at the mastectomy site. CANDI #1 20 mL CANDI #2 30 mL Hemoglobin stable 11.8 Objective - Vital Signs Vital signs: Vital Signs Temp 98.0 F 12/21/18 07:00 Pulse 65 12/21/18 07:00 Resp 16 12/21/18 07:00 BP 132/81 12/21/18 07:00 Pulse Ox 92 L 12/21/18 07:00 Intake & Output 12/20/18 12/21/18 12/21/18 18:59 06:59 18:59 Intake Total 446.28 Output Total 80 50 Balance 366.28 -50 Intake: Intake, IV Titration 86.28 Amount Heparin Sod,Pork in 0.45% 86.28 NaCl 25,000 unit In 0.45 % NaCl 1 250ml.bag @ 18 UNITS/KG/HR 18.207 mls/hr IV .[id number] [facility] Rx#: [id number] Oral 360 Output: Drainage 80 50 Left Chest 5 20 Left chest 2 75 30 Other: # Voids 3 1 # Bowel Movements 1 - Exam 34.9 - Constitutional General appearance: Present: obese - EENT Eyes: Present: EOMI ENT: Present: hard of hearing - Respiratory Respiratory: bilateral: diminished (at bases) - Cardiovascular Rhythm: regular Heart sounds: normal: S1, S2 - Integumentary Integumentary Comment(s): Decreased swelling bilateral lower extremities - Psychiatric Psychiatric: Present: A&O x's 3, appropriate affect, intact judgment & insight - Additional findings Additional findings: Incision clean and dry No evidence of infection or hematoma CANDI #1 20 mL CANDI #2 30 mL CANDI drainage is serous - Labs CBC & Chem 7: 12/21/18 07:22 12/21/18 07:22 Labs: Abnormal Lab Results - Last 24 Hours (Table) 12/21/18 Range/Units 07:22 Chloride 110 H (98-107) mmol/L Total Protein 5.9 L (6.3-8.2) g/dL Albumin 3.1 L (3.5-5.0) g/dL Assessment and Plan Assessment: Impression: 1. Status post left breast mastectomy 2 bilateral lower extremity swelling decreased/DVT as per ultrasound, chronic component with probable acute symptomatic exacerbation versus additional new DVT 3 hearing disorder hard of hearing 4 hypertension 5 history of rheumatoid arthritis 6 history of depression 7 history of osteoarthritis 8 history of GERD 9 history of hyperlipidemia Plan: 1. Teach patient and family drain care 2. Bilateral lower extremity DVT, patient to receive anticoagulation as per medicine 3. Ambulation with assistance 4. Probable discharge home this a.m. 5. Keep binder on at all times
--- NOTE | 2018-12-21 09:04 | P.DS ---
Providers Date of admission: 12/19/18 14:55 Attending physician: Jyoti Abdul Consults: 12/18/18 11:56 Consult Physician Routine Consulting Provider: Red Mcgowan Consult Reason/Comments: medical managment Do you want consulting provider notified?: Yes 12/19/18 13:00 Consult Physician Routine Consulting Provider: Obi Santos Consult Reason/Comments: bilateral DVT's Do you want consulting provider notified?: Yes Primary care physician: Red Juan M [place] [facility] Course: The patient is a 78-year-old white female who was admitted for left mastectomy and sentinel node biopsy on . Postoperatively the patient did well with the respect to the mastectomy, however she was complaining of increased bilateral lower extremity swelling which had been present prior to admission. An ultrasound was performed which revealed bilateral DVT. There was some evidence radiographically of this being chronic however it could not be guaranteed that there was not that there was not an acute process superimposed on this. The patient was therefore started on anticoagulation. She was seen and evaluated by Dr. Mcgowan as well as Dr. Santos from hematology. Postop day #3 she is doing well and is felt to be stable for discharge from a surgical standpoint. There is no evidence of any bleeding at the mastectomy site. Plan - Discharge Summary New Discharge Prescriptions: No Action Pravastatin Sodium [Pravachol] 40 mg PO HS amLODIPine [Norvasc] 5 mg PO DAILY Levothyroxine Sodium [Synthroid] 50 mcg PO DAILY traMADol HCl [Ultram] 50 mg PO Q8HR PRN PRN Reason: Pain Cholecalciferol [Vitamin D3 (25 Mcg = 1000 Iu)] 2,000 unit PO DAILY Oxybutynin Chloride 5 mg PO BID Pantoprazole Sodium [Protonix] 40 mg PO DAILY Losartan Potassium [Cozaar] 100 mg PO DAILY [place]-3 Fatty Acids/Fish Oil [Fish Oil 1,000 mg Softgel] 1 cap PO DAILY Garlic 1 tab PO DAILY Acetaminophen-Codeine 300-30mg [Tylenol w/codeine #3] 1 tab PO BID PRN PRN Reason: Pain Discharge Medication List Cholecalciferol [Vitamin D3 (25 Mcg = 1000 Iu)] 2,000 unit PO DAILY 02/27/14 [History] Levothyroxine Sodium [Synthroid] 50 mcg PO DAILY 02/27/14 [History] Pravastatin Sodium [Pravachol] 40 mg PO HS 02/27/14 [History] amLODIPine [Norvasc] 5 mg PO DAILY 02/27/14 [History] traMADol HCl [Ultram] 50 mg PO Q8HR PRN 02/27/14 [History] Oxybutynin Chloride 5 mg PO BID 10/22/18 [History] Acetaminophen-Codeine 300-30mg [Tylenol w/codeine #3] 1 tab PO BID PRN 12/13/18 [History] Garlic 1 tab PO DAILY 12/13/18 [History] Losartan Potassium [Cozaar] 100 mg PO DAILY 12/13/18 [History] [place]-3 Fatty Acids/Fish Oil [Fish Oil 1,000 mg Softgel] 1 cap PO DAILY 12/13/18 [History] Pantoprazole Sodium [Protonix] 40 mg PO DAILY 12/13/18 [History] Follow up Appointment(s)/Referral(s): [facility], [NON-STAFF] - 1 Week (aquiles ) Jyoti Abdul MD [STAFF PHYSICIAN] - 1 Week Activity/Diet/Wound Care/Special Instructions: do not drive teach family drain care, drain and record BID and PRN wear binder at all times unless in shower stop omega-3 fish oil, garlic, and ultram Please go directly to 's office after discharge to fiber picker free samples of Xarelto. 's office: #[phone]. Discharge Disposition: HOME SELF-CARE
[2018-12-21] MEDS: OXYBUTYNIN CHLORIDE 5 MG TAB PO SCH (10:02)
[2018-12-21] MEDS: amLODIPine 5 MG TAB PO SCH (10:03)
[2018-12-21] MEDS: LOSARTAN 50 MG TAB PO SCH (10:03)
--- NOTE | 2018-12-21 11:18 | P.PN ---
Subjective Progress Note Date: 12/21/18 This is a 78-year-old female patient who is status post left breast mastectomy exact amount biopsy with Dr. Antonio Patel. Estimated blood loss 50. Patient was found to have invasive ductal carcinoma that was found from ultrasound core biopsy to left breast. Additional medical history includes chest pain, GERD, deafness, , hyperlipidemia, hypertension, osteoporosis, rheumatoid arthritis and thyroid disorder. Patient is currently resting in bed patient remains sleepy from anesthesia. Patient does wake up and follow commands but quickly falls back to sleep. Patient denies any chest pain or shortness breath. Patient denies nausea vomiting and diarrhea. Patient denies any urinary burning or freq uency On 12/19/2018 patient is alert and oriented 3. Patient having increased swelling to lower extremities. Venous Doppler will be ordered to rule out DVT. Patient denies any shortness of breath. Patient denies chest pain. Patient denies nausea vomiting or diarrhea. Patient denies any urinary burning or frequency 12/20/2018 patient had venous Doppler of the bilateral legs showing DVT in both lower extremities. She was started on IV heparin yesterday. Hematology has been through to evaluate patient. Hemoglobin is staying stable at 11.3. Per nurse no significant blood drainage from the incision site. Patient denies any chest pain or shortness of breath. Denies any nausea or vomiting. Reports having regular bowel movements prior to admission. Denies any burning with urination. Denies any pain at incision site. Her calfs are Tender. Patient Has Swelling Both in Both Legs. She Reports That There Has Been Slight Decrease in the Swelling since Yesterday. Legs Are Elevated. 12/21/2018 patient is lying in bed comfortably. Denies any pain. She is scheduled for discharge today. Hematology had place patient on Xarelto. Patient is getting a coupon for the [place] of Xarelto and then she'll follow-up with Dr. Santos at the office to get the samples of Xarelto. Patient started on Xarelto for lateral lower extremity DVTs. She denies any chest pain or shortness of breath. Denies any nausea or vomiting. Reports having bowel movements. Denies any difficulty urinating. Objective - Vital Signs Vital signs: Vital Signs Temp 98.0 F 12/21/18 07:00 Pulse 65 12/21/18 07:00 Resp 16 12/21/18 07:00 BP 132/81 12/21/18 07:00 Pulse Ox 92 L 12/21/18 07:00 Intake & Output 12/20/18 12/21/18 12/21/18 18:59 06:59 18:59 Intake Total 446.28 Output Total 80 50 Balance 366.28 -50 Intake: Intake, IV Titration 86.28 Amount Heparin Sod,Pork in 0.45% 86.28 NaCl 25,000 unit In 0.45 % NaCl 1 250ml.bag @ 18 UNITS/KG/HR 18.207 mls/hr IV .[id number] [facility] Rx#: [id number] Oral 360 Output: Drainage 80 50 Left Chest 5 20 Left chest 2 75 30 Other: # Voids 3 1 # Bowel Movements 1 - Exam Head normocephalic Neck supple Lungs clear to auscultation bilaterally no wheezing or crackles Heart regular rate and rhythm S1-S2, no rub or gallop Abdomen is soft nontender nondistended positive bowel sounds no hepatosplenomegaly Extremities swelling noted in both legs. Tenderness with palpation of the cast. Patient does have JANIA hose on legs are elevated Neuro alert and orientated to 3 - Labs CBC & Chem 7: 12/21/18 07:22 12/21/18 07:22 Labs: Abnormal Lab Results - Last 24 Hours (Table) 12/21/18 Range/Units 07:22 Chloride 110 H (98-107) mmol/L Total Protein 5.9 L (6.3-8.2) g/dL Albumin 3.1 L (3.5-5.0) g/dL Assessment and Plan Assessment: 1. Status post left breast mastectomy for left breast cancer with Dr. Antonio Patel 2. History of GERD 3. History of hearing disorder 4. History of hyperlipidemia 5. History of essential hypertension 6. History of osteoarthritis 7. History of rheumatoid arthritis 8. History of hypothyroidism 9. History of depression 10. Bilateral lower extremity DVT. Venous Doppler completed showing positive for bilateral nonoccluding DVT. Patient does not have insurance coverage. She was given a 30 day free coupon per behavioral health case manager for the Xarelto starter pack. She is then to follow up with Dr. Santos for samples of the Xarelto. 11. Moderate protein calorie malnutrition: Add ensure Patient is medically stable for discharge. We'll have her follow up with Dr. Mcgowan in 1 week. I performed an examination of the patient and discussed their management with the physician Produce Manager. I have reviewed the Physician Produce Manager's notes and agree with the documented findings and plan of care
== END 2018-12-21 14:51 | disposition home health service (06) | DRG 580 ==
LOC: OR 06:24 → 6PED 12:00 → 4SSUR 12:25 → OR 12-19 16:39
PROVIDERS: ADMIT Surgery; ATTEND Surgery
PROC: 07B60ZZ Excision of Left Axillary Lymphatic, Open Approach (ICD-10-PCS; principal; 2018-12-18 08:30)
PROC: 0HBU0ZZ Excision of Left Breast, Open Approach (ICD-10-PCS; principal; 2018-12-18 08:30)
DX: C50.912 Malignant neoplasm of unspecified site of left female breast (principal); E44.0 Moderate protein-calorie malnutrition; I82.403 Acute embolism and thrombosis of unspecified deep veins of lower extremity, bilateral; E03.9 Hypothyroidism, unspecified; E78.5 Hyperlipidemia, unspecified; H91.90 Unspecified hearing loss, unspecified ear; I10 Essential (primary) hypertension; K21.9 Gastro-esophageal reflux disease without esophagitis; M06.9 Rheumatoid arthritis, unspecified; M81.0 Age-related osteoporosis without current pathological fracture; Z79.890 Hormone replacement therapy; Z79.899 Other long term (current) drug therapy; Z80.1 Family history of malignant neoplasm of trachea, bronchus and lung; Z82.49 Family history of ischemic heart disease and other diseases of the circulatory system; Z79.891 Long term (current) use of opiate analgesic
CPT/HCPCS: 38792; 80053; 85025; 85610; 85730; 88307; 88341; 88342; 93970

== ENCOUNTER → 2019-01-03 | Outpatient (CLI) | payer MEDICARE, BC ==
[2019-01-03 16:39] VITALS: BP 115/65; PULSE 77; RESP 18; TEMP 98.2; BMI 36.8
--- NOTE | 2019-01-03 17:45 | P.PN ---
Progress Note - Text Progress Note Date: 01/03/19 Pina is a 78-year-old white female status post left breast mastectomy and [phone]. Postoperatively she has done well. She was diagnosed in the hospital with a questionable chronic versus acute on chronic DVT. She is presently on xeralto. She has [address] Have minimal output which is serous in nature. Patient's pathology did reveal that her sentinel lymph nodes were positive for isolated tumor cells in sentinal node #1 and permanent section. The patient's left axillary contents revealed 7 lymph nodes with one of them demonstrating a cluster of isolated tumor cells measuring less than 1/10 of a millimeter in greatest dimension. Left mastectomy specimen revealed an 8 x 5 mm infiltrating moderately differentiated ductal carcinoma. Margins were negative. Lungs: Clear Heart: Regular rate and rhythm. Incision: Clean and dry CANDI drains removed Patient has decreased swelling in her ankles Impression/plan: 1. Patient status post left breast mastectomy and sentinel node biopsy 2. DVT postop on xeralto 3. Follow-up with medical oncology 4. Follow-up with radiation oncology secondary to findings and lymph node 5. Presentation at tumor board 6. Follow-up here in 3 months CC: Dr. Mcgowan
== END ==
LOC: WWCWWP 15:58
PROVIDERS: ATTEND Surgery
DX: Z53.9 Procedure and treatment not carried out, unspecified reason (principal)

== ENCOUNTER → 2019-05-31 | Outpatient (CLI) | payer MEDICARE, BC ==
[2019-05-31 09:17] VITALS: BP 131/69; PULSE 68; RESP 18; TEMP 97.7; BMI 34.4
--- NOTE | 2019-05-31 09:50 | P.PN ---
Subjective Principal diagnosis: Stage 1A T1N(isolated tumor cells)M0G1/2 ER/KS+Her2- Pina is a 78-year-old white female who underwent a left breast mastectomy and node resection of 9 nodes revealing the sentinel node positive for isolated tumor cells and one of this additional nodes demonstrating a cluster of isolated tumor cells measuring less than 1/10 mm in greatest dimension. The patient since then is doing well. The patient does complain of some fullness in the lateral axillary area which catches on her camisole. She also questions that she may have some nodularity at this site. The patient had persistent lower extremity swelling prior to the surgery and after the surgery was treated for a possible chronic DVT. She was scheduled for another ultrasound of her lower extremities later this month. She is presently on Xeralto. The patient is also on anastrozole. No complaints related to this. Family History: daughter: lioroid cancer Wall history: Menarche: 1 miscarriage, first full-term at 26, breast for: Yes Menopause: 49 Visit control pills: Negative use of IUD Hormones: Negative Past surgical history: 1. Varicose veins 2. Arthroscopic surgery of both knees and ankles 3. Left neck lesion benign 4. Left breast mastectomy and axillary node dissection Medical history: 1. Arthritis 2. Poor eyesight 3. 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 Objective - Vital Signs Vital signs: Vital Signs Temp 97.7 F 05/31/19 09:15 Pulse 68 05/31/19 09:15 Resp 18 05/31/19 09:15 BP 131/69 05/31/19 09:15 Pulse Ox 99 05/31/19 09:15 Intake & Output 05/30/19 05/31/19 05/31/19 18:59 06:59 18:59 Weight 99.79 kg - Exam BMI 34.5 - Constitutional General appearance: Present: obese - EENT Eyes: Present: EOMI ENT: Present: hard of hearing - Neck Neck: Present: normal ROM - Respiratory Respiratory: bilateral: CTA - Cardiovascular Rhythm: regular Heart sounds: normal: S1, S2 - Gastrointestinal Gastrointestinal Comment(s): no guarding or rebound Bowel sounds normal General gastrointestinal: Present: soft - Integumentary Integumentary Comment(s): +2 bilateral pitting edema - Musculoskeletal Musculoskeletal Comment(s): uses a walker - Psychiatric Psychiatric: Present: A&O x's 3, appropriate affect, intact judgment & insight - Additional findings Additional findings: breast exam: right breast: no dominate masses or nodules of concern right axilla: no adenopathy od concern left chest wall: Incision clean and dry, lateral dogear which is bothering her somewhat inferior to the incision on the lateral chest wall. It appears to be a slight scar was some nodularity which she is concerned about and additionally s ome subcutaneous fullness which is somewhat concerned about Left axilla: No adenopathy of concern Symptomatic dogear at mastectomy site Inferior to the incision. Patient is some slight nodularity and inferior to this some slight subcutaneous nodularity in the lateral aspect of the chest wall Assessment and Plan Assessment: Impression: 1. Status post left breast mastectomy for carcinoma at 2 sites stage IA patient did not receive radiation and did not receive chemotherapy she is on aromatase inhibitor 2. Family history of cancer 3. Severe arthritis 4. Elevated BMI 5. Decreased hearing 6. Decreased vision 7. Hypertension 8. High cholesterol 9. Chronic DVT on Xeralto 10. Symptomatic dogear lateral aspect of incision 11. Nodularity left chest wall superficial and subcutaneous 2 separate sites 12. Inverted eyelid right eye which patient is being scheduled for surgery Plan: 1. Patient having the chronic DVT reevaluated in the near future will determine the need for anticoagulation 2. Inverted eyelid right eye with constant mucus production probable surgery of this area the near future 3. Patient will return for evaluation as to removal of the nodule in the lateral chest wall and possible revision of the mastectomy incision after cleared from the chronic DVT 4. Had this time patient does not have evidence of recurrent cancer but would recommend excision of nodule the patient has brought to my attention in the lateral chest wall Appointment: 25 min CC: Dr. Mcgowan
== END | disposition home or self-care (01) ==
LOC: WWCWWP 09:01
PROVIDERS: ATTEND Surgery
DX: Z53.9 Procedure and treatment not carried out, unspecified reason (principal)

== ENCOUNTER → 2019-06-11 | Outpatient (CLI) | payer MEDICARE, BC ==
--- NOTE | 2019-06-11 12:43 | US ---
EXAMINATION TYPE: US venous doppler duplex LE DATE OF EXAM: 06/11/2019 12:26 PM COMPARISON: Prior bilateral ultrasound December 19, 2018 CLINICAL HISTORY: I80.299 Phlebitis and thrombophlebitis of other de. Prior bilateral DVT on blood inners since November. SIDE PERFORMED: Bilateral TECHNIQUE: The lower extremity deep venous system is examined utilizing real time linear array sonog larry with graded compression, doppler sonography and color-flow sonography. VESSELS IMAGED: External Iliac Vein (EIV) Common Femoral Vein Deep Femoral Vein Greater Saphenous Vein * Femoral Vein Popliteal Vein Small Saphenous Vein * Proximal Calf Veins (* superficial vessels) Right Leg: Negative for DVT Left Leg: Negative for DVT Grayscale, color doppler, spectral doppler imaging performed of the deep veins of the bilateral lower extremities. There is normal flow, compressibility, vascular waveforms bilaterally. IMPRESSION: Interval resolution of bilateral lower extremity partial occluding thrombi.
== END | disposition home or self-care (01) ==
LOC: RADUSWWP 11:41
PROVIDERS: ATTEND Internal Medicine Hematology & Oncology
DX: I80.299 Phlebitis and thrombophlebitis of other deep vessels of unspecified lower extremity (principal)
CPT/HCPCS: 93970

== ENCOUNTER → 2019-08-20 | Outpatient (CLI) | payer MEDICARE, BC ==
--- NOTE | 2019-08-20 09:56 | MM ---
Reason for exam: additional evaluation requested from prior study. Last mammogram was performed 10 months ago. History: Patient is postmenopausal and has history of breast cancer at age 78. Mastectomy of the left breast, December 18, 2018. Malignant US biopsy breast VAD LT of the left breast, October 22, 2018. Malignant US biopsy breast add'l VAD LT of the left breast, October 22, 2018. Taking antineoplastic for 1 year beginning at age 78. Physical Findings: Nurse did not find any significant physical abnormalities on exam. MG 3D Diag Mammo W/Cad RT CC, MLO, and XCCL view(s) were taken of the right breast. Prior study comparison: October 22, 2018, left breast MG diagnostic mammo LT wo CAD. July 27, 2018, bilateral MG 3d screening mammo w/cad. There are scattered fibroglandular densities. Benign appearing calcifications in the right breast. No suspicious abnormality. No significant new findings when compared with previous films. These results were verbally communicated with the patient and result sheet given to the patient on 08/20/19. ASSESSMENT: Benign, BI-RAD 2 RECOMMENDATION: Follow-up diagnostic mammogram of the right breast in 1 year.
== END | disposition home or self-care (01) ==
LOC: RADMAMWWP 08:54
PROVIDERS: ATTEND Surgery
DX: Z08 Encounter for follow-up examination after completed treatment for malignant neoplasm (principal); Z85.3 Personal history of malignant neoplasm of breast
CPT/HCPCS: 77065; G0279; 77061

== ENCOUNTER → 2019-08-22 | Outpatient (CLI) | payer MEDICARE, BC ==
[2019-08-22 11:52] VITALS: BP 126/77; PULSE 63; RESP 18; TEMP 97.6
--- NOTE | 2019-08-22 12:18 | P.PN ---
Subjective Progress Note Date: 08/22/19 Principal diagnosis: Stage IA left breast cancer [id number] ER/OH+Her2- Pina is a 78-year-old white female who underwent a left breast mastectomy and node resection of 9 nodes revealing the sentinel node positive for isolated tumor cells and one of this additional nodes demonstrating a cluster of isolated tumor cells measuring less than 1/10 mm in greatest dimension. The patient since then is doing well. The patient does complain of some fullness in the lateral axillary area which catches on her camisole. She also questions that she may have some nodularity at this site. The patient has persistent left lateral chest wall fullness which is irritating at times. She had a right breast mammogram performed on [id number] this is a benign BIRADS 2 inches recommended to follow-up mammogram of the right breast in 1 year. The patient had persistent lower extremity swelling which was present prior to the surgery and after the surgery was treated for a possible chronic DVT. This is much improved. She is presently on Xeralto. The patient is also on anastrozole. No complaints related to this. Family History: daughter: thyroid cancer Hormonal history: Menarche: 1 miscarriage, first full-term at 26, breast for: Yes Menopause: 49 Visit control pills: Negative use of IUD Hormones: Negative Past surgical history: 1. Varicose veins 2. Arthroscopic surgery of both knees and ankles 3. Left neck lesion benign 4. Left breast mastectomy and axillary node dissection Medical history: 1. Arthritis 2. Poor eyesight 3. Hearing aids 4. 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 Objective - Vital Signs Vital signs: Vital Signs Temp 97.6 F 08/22/19 11:46 Pulse 63 08/22/19 11:46 Resp 18 08/22/19 11:46 BP 126/77 08/22/19 11:46 Pulse Ox 98 08/22/19 11:46 Intake & Output 08/21/19 08/22/19 08/22/19 18:59 06:59 18:59 Weight 99.337 kg - Exam BMI 35.3 - Constitutional General appearance: Present: obese - EENT Eyes: Present: EOMI ENT: Present: hard of hearing - Neck Details: no adenopathy of concern Neck: Present: normal ROM - Respiratory Respiratory: bilateral: CTA - Cardiovascular Rhythm: regular Heart sounds: normal: S1, S2 - Gastrointestinal General gastrointestinal: Present: normal bowel sounds, soft - Integumentary Integumentary: Present: normal turgor - Musculoskeletal Musculoskeletal Comment(s): decreased mobility - Psychiatric Psychiatric: Present: A&O x's 3, appropriate affect, intact judgment & insight - Additional findings Additional findings: breast exam: BRA 38B ptosis grade 3 inspection: right breast: Multi-positional exam fibrocystic changes, no dominant masses or nodules of concern Right axilla: No adenopathy of concern Left chest wall: Incision clean and dry. There is lateral redundant tissue which is bothersome to the patient, No evidence of recurrent cancer Left axilla: No adenopathy of concern Assessment and Plan Assessment: Impression: 1. Left breast stage I a breast cancer status post mastectomy redundant tissue lateral chest wall no evidence of recurrent cancer 2. Patient presently on anastrozole 3. Chronic bilateral DVT improved on blood thinner 4. Patient on xeralto 5. Poor eyesight 6. Hearing aids 7. Arthritis/ostial and rheumatoid 8. Fibrocystic breast changes 9. Recent mammogram right breast benign 10. Patient was seen by Dr. Yanes this and small primary tumor with negative margins and no macro metastatic lymphadenopathy she was not recommended to undergo adjuvant radiation therapy. Plan: 1. Continue anastrozole 2. Surgical resection of redundant lateral chest wall tissue, with a V/Y advancement flap 3. Medical management of medical conditions 4. Preoperative clearance by Dr. Mcgowan CC: DR. Mcgowan encounter 20 minutes, > 50% of time in planning and counselling Time with Patient: Less than 30
== END | disposition home or self-care (01) ==
LOC: WWCWWP 11:25
PROVIDERS: ATTEND Surgery
DX: Z53.9 Procedure and treatment not carried out, unspecified reason (principal)

== ENCOUNTER → 2020-12-02 | Outpatient (CLI) | payer MEDICARE, BC ==
--- NOTE | 2020-12-02 13:26 | MM ---
Reason for exam: additional evaluation requested from prior study. Last mammogram was performed 1 year and 3 months ago. History: Patient is postmenopausal and has history of breast cancer at age 78. Mastectomy of the left breast, December 18, 2018. Malignant US biopsy breast VAD LT of the left breast, October 22, 2018. Malignant US biopsy breast add'l VAD LT of the left breast, October 22, 2018. Taking antineoplastic for 1 year beginning at age 78. Physical Findings: Nurse did not find any significant physical abnormalities on exam. MG 3D Diag Mammo W/Cad RT CC and MLO view(s) were taken of the right breast. Prior study comparison: August 20, 2019, right breast MG 3d diag mammo w/cad RT. October 22, 2018, left breast MG diagnostic mammo LT wo CAD. The breast tissue is heterogeneously dense. This may lower the sensitivity of mammography. Stable benign calcifications. There is no discrete abnormality. No significant new findings when compared with previous films. These results were verbally communicated with the patient and result sheet given to the patient on 12/02/20. ASSESSMENT: Benign, BI-RAD 2 RECOMMENDATION: Follow-up diagnostic mammogram of the right breast in 1 year.
== END | disposition home or self-care (01) ==
LOC: RADMAMWWP 12:19
PROVIDERS: ATTEND Internal Medicine
DX: R92.2 Inconclusive mammogram (principal); R92.1 Mammographic calcification found on diagnostic imaging of breast; Z78.0 Asymptomatic menopausal state; Z85.3 Personal history of malignant neoplasm of breast
CPT/HCPCS: 77065; G0279; 77061

== ENCOUNTER → 2021-01-14 | Outpatient (CLI) | payer MEDICARE, BC ==
[2021-01-14 10:15] VITALS: BP 122/73; PULSE 81; RESP 20; TEMP 98.2
--- NOTE | 2021-01-14 10:15 | P.PN ---
Subjective Progress Note Date: 01/14/21 Principal diagnosis: left breast invasive ductal cancer 12-18-18 Stage IA left breast cancer [id number] ER/VT+Her2- Pina is a 80-year-old white female who underwent a left breast mastectomy and node resection of 9 nodes revealing the sentinel node positive for isolated tumor cells and one of this additional nodes demonstrating a cluster of isolated tumor cells measuring less than 1/10 mm in greatest dimension. The patient since then is doing well. The patient is not complaining of any lumps masses or nodules in her right breast on her lateral chest wall at this time on the left. She had a right breast mammogram performed on 12-02-20 this is a benign BIRADS 2, recommended to follow-up mammogram of the right breast in 1 year. The patient had persistent lower extremity swelling which was present prior to the surgery and after the surgery was treated for a possible chronic DVT. This is much improved. She is presently on Xeralto. She states she will be on this for the rest of her life. The patient is also on anastrozole. No complaints related to this. [place] [id number], this was reviewed. His plan is to continue the armidex therapy and follow-up with her in 6 months. He also concurs with the patient continuing on the sotalol toe on a regular basis. She was advised given her overall low levels of activity and no chronic venous insufficiency this is reasonable as long as there are no tolerance issues. She does take ultram for joint pain related to arthritis. Family History: daughter: thyroid cancer Hormonal history: Menarche: 10[birth year]07/25 1 miscarriage, first full-term at 26, breast for: Yes Menopause: 49 Visit control pills: Negative use of IUD Hormones: Negative Past surgical history: 1. Varicose veins 2. Arthroscopic surgery of both knees and ankles 3. Left neck lesion benign 4. Left breast mastectomy and axillary node dissection 5. inverted eyelid surgery Medical history: 1. Arthritis 2. Poor eyesight 3. Hearing aids 4. chronic DVT 5. 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 Objective - Constitutional General appearance: Present: cooperative - EENT Eyes: Present: EOMI ENT: Present: hearing grossly normal - Neck Neck: Present: normal ROM - Respiratory Respiratory: bilateral: CTA - Cardiovascular Rhythm: regular Heart sounds: normal: S1, S2 - Integumentary Integumentary Comment(s): Decreased bilateral ankle edema - Musculoskeletal Musculoskeletal Comment(s): uses a walker - Psychiatric Psychiatric: Present: A&O x's 3, appropriate affect, intact judgment & insight - Additional findings Additional findings: Breast exam: bra: uses a camisole Inspection: Right breast core proptosis, left mastectomy Palpation: Right breast: Fibrocystic changes, no dominant masses or nodules of concern Right axilla: No adenopathy of concern Left chest wall no evidence of recurrent cancer Left axilla: No adenopathy of concern Assessment and Plan Assessment: Impression: 1. Arthritis 2. Poor eyesight 3. Hearing aids 4. chronic DVT 5. arthritis 6. Status post left breast mastectomy no evidence of recurrent cancer 7. Decreased bilateral ankle edema Plan: 1. Repeat right breast mammogram in 1 year 2. Follow-up in 6 months for physician exam 3. Continue over MedX 4. Continue his overall total 5. Follow up sooner if any questions or concerns CC: Dr. Mcgowan
== END ==
LOC: WWCWWP 09:56
PROVIDERS: ATTEND Surgery
DX: Z08 Encounter for follow-up examination after completed treatment for malignant neoplasm (principal); M19.90 Unspecified osteoarthritis, unspecified site; H54.7 Unspecified visual loss; R60.0 Localized edema; I82.90 Acute embolism and thrombosis of unspecified vein; Z97.4 Presence of external hearing-aid; Z90.12 Acquired absence of left breast and nipple; Z85.3 Personal history of malignant neoplasm of breast

== ENCOUNTER → 2022-06-09 | Outpatient (CLI) | payer MEDICARE, BC ==
--- NOTE | 2022-06-09 11:35 | MM ---
Reason for Exam: Additional evaluation requested from prior study. Last mammogram was performed 1 year(s) and 6 month(s) ago. Indicated Problems: Lump or thickening of the left side for 1 Month(s). Patient History: Menarche at age 11. First Full-Term at age 26. Postmenopausal. Breast cancer, left, age 78. 12/18/2018, Mastectomy on the Left side. 10/22/2018, Malignant Core Biopsy on the left side. 10/22/2018, Malignant Core Biopsy on the left side. Prior Study Comparison: 10/22/2018 Left Diagnostic Mammogram, [facility]. 08/20/2019 Right Diagnostic Mammogram, [facility]. 12/02/2020 Right Diagnostic Mammogram, [facility]. Tissue Density: Right: There are scattered fibroglandular densities. Findings: Analyzed By CAD. Subtle nodularity lower inner quadrant now better seen on the cc view. It becomes less defined with an appearance similar to prior studies on the spot 3-D cc view. Benign vascular and a few scattered round and punctate calcifications redemonstrated. No significant change from prior exams. Overall Assessment: Incomplete: need additional imaging evaluation, BI-RAD 0 Management: Diagnostic Breast Ultrasound of the left breast. For the patient palpated site. Electronically signed and approved by: Diane Bass M.D. Radiologist
--- NOTE | 2022-06-09 11:42 | USB ---
Reason for Exam: Clinical finding. Patient History: Menarche at age 11. First Full-Term at age 26. Postmenopausal. Breast cancer, left, age 78. 12/18/2018, Mastectomy on the Left side. 10/22/2018, Malignant Core Biopsy on the left side. 10/22/2018, Malignant Core Biopsy on the left side. Technique: Method: Targeted. Prior Study Comparison: 10/22/2018 Left Diagnostic Mammogram, [facility]. 08/20/2019 Right Diagnostic Mammogram, [facility]. 12/02/2020 Right Diagnostic Mammogram, [facility]. Findings: The area of palpable concern of the left breast was scanned. The patient is status post left mastectomy. Ultrasound is targeted to the patient's palpable site 3:00 position, 12 cm from the nipple. There is a thickened lymph node here measuring 1.3 x 1.1 x 0.8 cm. Fatty hilum is effaced and the cortex measuring 5 mm. Given the patient's history of breast cancer on this side, tissue sampling is recommended. Overall Assessment: Suspicious, BI-RAD 4 Management: Ultrasound Core Biopsy of the left breast. For the thickened lymph node 3:00 left chest wall, status post mastectomy. Results were given to the patient verbally at the time of exam. Electronically signed and approved by: Diane Bass M.D. Radiologist
[2022-06-09 11:59] VITALS: BP 118/72; PULSE 77; RESP 18; TEMP 98
--- NOTE | 2022-06-09 12:16 | P.PN ---
Subjective Progress Note Date: 06/09/22 left breast invasive ductal cancer 12-18-18 Stage IA left breast cancer [id number] ER/OR+Her2- Pina is a 80-year-old white female who underwent a left breast mastectomy and node resection of 9 nodes revealing the sentinel node positive for isolated tumor cells and one of this additional nodes demonstrating a cluster of isolated tumor cells measuring less than 1/10 mm in greatest dimension. The patient since then is doing well. The patient is not complaining of any lumps masses or nodules in her right breast on her lateral chest wall at this time on the left. She had a right breast mammogram performed on 06-09-22 this is a benign BIRADS 2, recommended to follow-up mammogram of the right breast in 1 year. On the left chest wall an ultrasound was done which showed an enlarged node and biopsy was recommended. The patient had persistent lower extremity swelling which was present prior to the surgery and after the surgery was treated for a possible chronic DVT. This is much improved. She is presently on Xeralto. She states she will be on this for the rest of her life. The patient is also on anastrozole. No complaints related to this. She does take ultram for joint pain related to arthritis. Family History: daughter: thyroid cancer Hormonal history: Menarche: 1 miscarriage, first full-term at 26, breast for: Yes Menopause: 49 Visit control pills: Negative use of IUD Hormones: Negative Past surgical history: 1. Varicose veins 2. Arthroscopic surgery of both knees and ankles 3. Left neck lesion benign 4. Left breast mastectomy and axillary node dissection 5. inverted eyelid surgery Medical history: 1. Arthritis 2. Poor eyesight 3. Hearing aids 4. chronic DVT 5. 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 Objective - Vital Signs Vital signs: Vital Signs Temp 98 F 06/09/22 11:57 Pulse 77 06/09/22 11:57 Resp 18 06/09/22 11:57 BP 118/72 06/09/22 11:57 Pulse Ox 98 06/09/22 11:57 FiO2 Intake & Output 06/08/22 06/09/22 06/09/22 18:59 06:59 18:59 Weight 103.419 kg - Constitutional General appearance: Present: cooperative - EENT Eyes: Present: EOMI - Neck Neck: Present: normal ROM - Respiratory Respiratory: bilateral: CTA - Cardiovascular Heart sounds: normal: S1, S2 - Integumentary Integumentary: Present: normal turgor - Musculoskeletal Musculoskeletal Comment(s): uses a walker - Psychiatric Psychiatric: Present: A&O x's 3, appropriate affect, intact judgment & insight - Additional findings Additional findings: Breast exam: bra: uses a camisole Inspection: Right breast grade 3 ptosis, left mastectomy Palpation: Right breast: Fibrocystic changes, no dominant masses or nodules of concern Right axilla: No adenopathy of concern Left chest wall no evidence of recurrent cancer Left axilla: No adenopathy of concern Assessment and Plan Assessment: Impression: 1. Arthritis 2. Poor eyesight 3. Hearing aids 4. chronic DVT 5. arthritis 6. left breast mastectomy for stage I invasive ductal cancer; she had 19 nodes removed the sentinel node was positive for isolated tumor cells in one of the additional nodes showed a cluster of isolated tumor cells measuring less than 1/10 of a millimeter in greatest dimension Plan: Continue anastrozole Ultrasound core biopsy of lymph node on the lateral left chest wall Follow up after ultrasound core biopsy Repeat right breast mammogram in 1 year CC: Dr. Mcgowan
== END | disposition home or self-care (01) ==
LOC: RADMAMWWP 10:15
PROVIDERS: ATTEND Surgery
DX: Z85.3 Personal history of malignant neoplasm of breast (principal); Z78.0 Asymptomatic menopausal state; Z90.12 Acquired absence of left breast and nipple
CPT/HCPCS: 77065; 76642; G0279; 77061

== ENCOUNTER → 2022-10-26 | Day surgery (SDC) | payer MEDICARE, BC ==
--- NOTE | 2022-11-04 09:57 | USB ---
Prior Study Comparison: 08/20/2019 Right Diagnostic Mammogram, [facility]. 12/02/2020 Right Diagnostic Mammogram, [facility]. 06/09/2022 Right MG 3D diag mammo w/cad RT, [facility]. Pathology Description: Location: 3 o'clock. Marker Left Behind. Needle Type: Celero Cores: 2 Gauge: 12 The procedure of ultrasound guided core biopsy was explained to the patient. Benefits, alternatives, and risks were discussed. An informed consent was then obtained. The patient was placed in supine positioning for imaging and for the procedure. Preprocedure ultrasound redemonstrates an oval 1.2 cm heterogeneous hypoechoic mass at 3:00 position 12 cm distance from nipple. Patient placed 2 different palpable abnormality roughly 10 cm distance from nipple which corresponds to an heterogeneous oval lesion wider greater than tall measuring 13 mm long axis. Sampling of both lesions is chosen. The overlying skin was prepped and draped in usual sterile fashion. Lidocaine is used as anesthetic into the skin and subcutaneous tissue up to area of concern in the left breast. Under ultrasound guidance, a vacuum assisted biopsy gun device was used to obtain 2 core samples in both lesions. Following this, a biopsy clip was left in each lesion. A butterfly clip was placed at the new palpable 10 cm distance from nipple and a coil clip is placed at the prior visualized lesion 12 cm distance from nipple probable prominent lymph node. The patient tolerated the procedure well without any immediate complication. The patient was kept in the radiology department for short stay after the procedure and then discharged home in stable condition. Technologists saved image of clips in both lesions. Postprocedure mammogram: This is deferred due to mastectomy change. Impression: Successful, uncomplicated ultrasound guided core biopsies of 2 areas of concern in the left lateral chest wall, full pathology results to follow. Intermediate index of suspicion noted at time of procedure. Pathology Results: Result: Benign, Lymph node. A. LEFT BREAST, SITE A 3:00, CORE BIOPSY: Lymph node negative for metastasis, final characterization pending additional studies. See note. B. LEFT BREAST, SITE B 3:00, CORE BIOPSY: Benign reactive lymph node tissue with focal fibrosis. See note. Notes Sections examined from parts A and B show lymph node tissue, with reactive features and focal fibrosis identified in part B. No metastatic malignancy is identified in either biopsy. In part A, the node is involved by a somewhat monotonous population of small, mature, lymphocytes without obvious germinal centers. Given the findings, a panel of immunoperoxidase stains will be performed on part A in order to rule out the possibility of a mature lymphoproliferative neoplasm, and an addendum will follow. Pathology Description: Location: 3 o'clock. Marker Left Behind. Needle Type: Celero Cores: 2 Skin Nicks: 1 Gauge: 12 Overall Assessment: Benign Management: Diagnostic Mammogram of the left breast in 6 months. Diagnostic Breast Ultrasound of the left breast in 6 months. Electronically signed and approved by: Devin Verde M.D.
== END ==
LOC: RADUSWWP 08:59
PROVIDERS: ATTEND Surgery
DX: N60.32 Fibrosclerosis of left breast (principal); Z85.3 Personal history of malignant neoplasm of breast
CPT/HCPCS: 88305; 88342; 88341; 19083; 19084; A4648

== ENCOUNTER → 2022-11-03 | Outpatient (CLI) | payer MEDICARE, BC ==
[2022-11-03 09:21] VITALS: BP 109/57; PULSE 79; RESP 18; TEMP 98.3
--- NOTE | 2022-11-03 09:32 | P.PN ---
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 The patient since then is doing well. The patient is not complaining of any lumps masses or nodules in her right breast or on her chest wall at this time on the left. She had a right breast mammogram performed on 06-09-22 this is a benign BIRADS 2, recommended to follow-up mammogram of the right breast in 1 year. On the left chest wall an ultrasound was done which showed an enlarged node and biopsy was recommended. The patient had persistent lower extremity swelling which was present prior to the surgery and after the surgery was treated for a possible chronic DVT. This is much improved. She is presently on Xeralto. She states she will be on this for the rest of her life. The patient is also on anastrozole. No complaints related to this. She does take ultram for joint pain related to arthritis. She underwent biopsy of lymph node left chest wall at 3:00 on 10-26-22 which revealed lymph node negative for metastasis final characterization pending additional studies. Additionally at 3 o'clock position left chest wall a benign reactive lymph node with focal fibrosis was identified. She has recently been started on iron, and vitamin B for anemia as per Dr. Mcgowan. Family History: daughter: thyroid cancer Hormonal history: Menarche: 1 miscarriage, first full-term at 26, breast for: Yes Menopause: 49 Visit control pills: Negative use of IUD Hormones: Negative Past surgical history: 1. Varicose veins 2. Arthroscopic surgery of both knees and ankles 3. Left neck lesion benign 4. Left breast mastectomy and axillary node dissection 5. inverted eyelid surgery Medical history: 1. Arthritis 2. Poor eyesight 3. Hearing aids 4. chronic DVT 5. arthritis 6. anemic Social history: Smoke: Negative Alcohol: Nightly Drugs: Negative Review of systems: Constitutional: Negative HEENT: Cataracts surgery, bilateral inverted eyelids had surgery Bilateral blurred vision negative pain Ears: Decreased hearing Breasts: As per HPI Cardiovascular: Negative Respiratory: Negative GI: Negative : Negative Musculoskeletal: Arthritis Integument: Negative Neurologic: Negative Psychiatric: Negative Endocrine: Has had weight gain in the recent past Hematologic: Chronic DVT bilateral on Xeralto Objective - Constitutional General appearance: Present: cooperative - EENT Eyes: Present: EOMI ENT: Present: hearing grossly normal - Neck Neck: Present: normal ROM - Respiratory Respiratory: bilateral: CTA - Cardiovascular Rhythm: regular Heart sounds: normal: S1, S2 - Gastrointestinal General gastrointestinal: Present: soft - Integumentary Integumentary: Present: normal turgor - Musculoskeletal Musculoskeletal: Present: gait normal - Psychiatric Psychiatric: Present: A&O x's 3, appropriate affect, intact judgment & insight - Additional findings Additional findings: Breast exam: bra: uses a camisole Inspection: Right breast grade 3 ptosis, left mastectomy Palpation: Right breast: Fibrocystic changes, no dominant masses or nodules of concern Right axilla: No adenopathy of concern Left chest wall no evidence of recurrent cancer; at 3 oclock small nodularity which was recently biopsied Left axilla: No adenopathy of concern Assessment and Plan Assessment: Impression: 1. Arthritis 2. Poor eyesight 3. Hearing aids 4. chronic DVT 5. arthritis 6. left breast mastectomy for stage I invasive ductal cancer; she had 9 nodes removed the sentinel node was positive for isolated tumor cells in one of the additional nodes showed a cluster of isolated tumor cells measuring less than 1/10 of a millimeter in greatest dimension Plan: Continue anastrozole Ultrasound core biopsy of lymph node on the lateral left chest wall preformed on 10-24-22 final pathology is pending Repeat right breast mammogram in 1 year follow up in 6 months CC: Dr. Mcgowan
== END ==
LOC: WWCWWP 08:56
PROVIDERS: ATTEND Surgery
DX: C50.912 Malignant neoplasm of unspecified site of left female breast (principal); D64.9 Anemia, unspecified; M19.90 Unspecified osteoarthritis, unspecified site; Z79.811 Long term (current) use of aromatase inhibitors; Z90.12 Acquired absence of left breast and nipple; Z86.718 Personal history of other venous thrombosis and embolism; Z97.4 Presence of external hearing-aid; H54.7 Unspecified visual loss; Z80.1 Family history of malignant neoplasm of trachea, bronchus and lung